=== PATIENT | female | born 1995 | race Caucasian/White ===

== ENCOUNTER 2025-01-02 10:22 | Outpatient (REF) | payer OTHER, SELFPAY ==
--- OUTSIDE RECORDS SUMMARY | 2025-01-02 11:38 | XMS_ITS | Clinical Summary ---
Author Organization Patient Business Ser [facility] Address [address] [place] [address] Care Team Providers Care Scientific Writer Name Role Phone Constantino Sanders MD Primary Care Provider [phone] Allergies Active Allergy Reactions Criticality Noted Date Comments Bupropion Hcl 10/05/2024 Medications omeprazole (PriLOSEC) [address] capsule Take 1 capsule (20 mg total) by mouth 1 (one) time each day. Active Linzess 72 mcg capsule Take 1 capsule (72 mcg total) by mouth 1 (one) time each day. 4 Active Humira,CF, Pen 40 mg/0.4 mL pen 4 Active DULoxetine (CYMBALTA) [address] capsuleIndicatio ns:Depression, unspecified depression type Take 2 capsules (60 mg total) by mouth 1 (one) time each day. Do not crush or chew. 60 capsule 2 5 Active clotrimazole (LOTRIMIN) 1 % cream Apply topically 2 (two) times a day. Active polyethylene glycol (MIRALAX) 17 gram packet Take 17 g by mouth 1 (one) time each day. Active coal tar-salicylic acid 2 % shampoo Apply topically. Apply 1 mL/1.7m2 topically 3 times daily. - Apply externally Active Active Problems Problem Noted Date Diagnosed Date NUD (nonulcer dyspepsia) 11/08/2024 Irritable bowel syndrome with constipation 11/08 Intermittent asthma 10/05/2024 Idiopathic scoliosis and kyphoscoliosis 10/05/20 PCOS (polycystic ovarian syndrome) 10/05/2024 Panic attack 10/05/2024 Chest pain 10/05/2024 Overview (10/05/2024): Chest pain/palpitations Depression 10/05/2024 Seropositive rheumatoid arthritis 10/05/2024 COVID-19 10/05/2024 Encounters Date Type Department Care Team Description 11/28/2024 3:30 PM EST Office Visit Internal Medicine - [place] 175 [facility] [address] [place] [phone] Constantino Sanders MD Depression, unspecified depression type (Primary Dx) 11/08/2024 10:20 AM EST Office Visit Gastroenterology - 299 [facility] 299 [facility] [address] [place] [phone] Alona Benjamin PA Irritable bowel syndrome with constipation (Primary Dx); NUD (nonulcer dyspepsia) 10/17/2024 Telephone Internal Medicine - [place] 175 [facility] 200 [place] [phone] Constantino Sanders MD Appointment (Last appt note) from Last 3 Months Immunizations Name Administration Dates Next Due DTP 06/05/1998, 5,1994,07/21 HPV, Quadrivalent 06/06/2008,06/29/2007,01/06/20 07 Hepatitis B (Jwbnddd-B-Nypoz , Recombivax HB-Adult) 19yo and older 05/27/1995,1994,1994 HiB 09/07/1995, 5,1994,07/21 Influenza, Unspecified 09/10/2021,2019,10/05/2019,09/16,10/15/2014,08/15/2013,08/04/2011 ,11/11/2010 MMR, measles mumps and rubel la Live (Priorix; M-M-R II) 12mo and older 06/05/1998,09/07/1995 Meningococcal Conjugate (Men veo) MenACWY 11yo to less than 19 yo 03/10/2013,04/05/2007 Polio, Unspecified 06/05/1998, 5,1994,07/21 Tdap Tetanus diptheria acell ular pertussis (Boostrix; Adacel) 7yo and older 03/18/2015,01/06/2007 Varicella live (Varivax) 12m o and older 04/22/2015,06/06/2008,08/05/1999 Surgical History Surgery Date Site/Laterality Comments OTHER SURGICAL HISTORY PROCEDURE: DENIES PREVIOUS SURGERY Medical History Medical History Date Comments Depression with anxiety DX:Depression; C OMMENT: 12/05 - trialed on Prozac Chest pain 09/25/2013 DX:Chest pain; C OMMENT: 09/2013 hx of syncope x 2(while hair being restrained while standing up 2005,after sedation for tooth extract) Event recorder NSR/diag chest pain musculoskeletal in origin with anxiety component Intermittent asthma 03/02/2006 DX:Intermitt ent asthma; COMMENT: never hospitalized, worse in summer, triggers: viral illness, rarely exercise, seasonal Panic attack 07/19/2013 DX:Panic attack; COMMENT: Seen [facility] 4-13 panic attack anxiety (c/o sob chest pressure) work up unremarkable, follows with behavioral health PCOS (polycystic ovarian syndrome) 10/05/2012 DX:PCOS (polycystic ovarian syndrome) Scoliosis (and kyphoscoliosi s), idiopathic 01/06/2007 DX:Scoliosis (and kyphoscoli osis), idiopathic; COMMENT: 09/17/09 Dr. Peyton Grijalva pt doing well with no progression of scoliosis. Since at end of growth no further progression expected. Seropositive rheumatoid arth ritis ([facility]/HCC) 10/28/2017 DX:Seropositive rheumatoid a rthritis ([facility]); COMMENT: Follows with rheumatology Covid-19 12/26/2021 DX:COVID-19; COM MENT: 12/02/2021 Family History Medical History Relation Name Comments Asthma Brother 1 Arthritis Father Asthma Father arthropathy Other: Other Father pat ggm hx of p acemaker in later yrs Other: Other Maternal Grandmother rheumat ic heart disease Asthma Mother needs antibioti cs before surgery Diabetes Other 1 Other cancer Other 2 Other: heart Other 3 Other: anxiety Other 4 ? maternal si de Arthritis Paternal Grandmother interst itial lung disease Asthma Sister 1 Relation Name Status Comments Brother 1 Brother 2 Alive Father Alive huber Maternal Grandmother Mother Alive primitivo Other 1 Other 2 Other 3 Other 4 Paternal Grandmother Sister 1 Sister 2 Alive Social History Tobacco Use Types Packs/Day Years Used Date Smoking Tobacco: Never Smokeless Tobacco: Never Alcohol Use Standard Drinks/Week Comments No 0 (1 standard drink = 0.6 oz pur e alcohol) Comments Unknown Sex and Gender Information Value Date Recorded Sex Assigned at Not on file Legal Sex Female 11:53 AM EDT Gender Identity Not on file Sexual Orientation Not on file Obstetrics History Last Filed Vital Signs Vital Sign Reading Time Taken Comments Blood Pressure 122/80 11/28/2024 3:36 PM EST Pulse 80 11/28/2024 3:36 PM EST Temperature 36.6 ??C (97.8 ??F) 11/28/2024 3:36 PM ES T Respiratory Rate - - Oxygen Saturation 98% 11/28/2024 3:36 PM EST Inhaled Oxygen Concentration - - Weight 86.9 kg (191 lb 9.6 oz) 11/28/2024 3:36 P M EST Height 172.7 cm (5' 8 ) 11/08/2024 10:14 AM EST Body Mass Index 29.13 11/08/2024 10:14 AM EST Plan of Treatment Health Maintenance Due Date Last Done Comments Pneumococcal Vaccine: Pediatrics (0 to 5 Years) and At-Risk Patients (6 to 64 Years) (1 of 2 - PCV) 2013 Cervical Cancer Screening: Pap Smear 06/26/2018 06/26/2015, 06/26/2015 Depression Screening 07/14/2021 HIV Screening 07/14/2021 Social Influencers of Health Screening 07/14/2021 COVID-19 Vaccine (3 - Moderna risk series) 01/21/2022 12/24/2021, 11/26/2021 Influenza Vaccine (#1) 2024 , 10/08/2020, 10/05/2019, Additional history exists DTaP,Tdap,and Td Vaccines (8 - Td or Tdap) 03/18/2025 03/18/2015, 01/06/2007, 06/05/1998, Additional history exists Hepatitis B Vaccines Completed 05/27/1995, 05/24/1995, 1994, Additional history exists HIB Vaccines Completed 09/07/1995, 08/22, 1994, Additional history exists IPV Vaccines Completed 06/05/1998, 08/22, 1994, Additional history exists MMR Vaccines Completed 06/05/1998, 09/07/1995 HPV Vaccines Completed 06/06/2008, 06/23, 06/29/2007, Additional history exists Meningococcal ACWY Vaccine Completed 03/10, 04/05/2007, 01/06/2007 Varicella Vaccines Completed 04/22/2015, 0 06/06/2008, 08/05/1999 Hepatitis C Screening Completed 10/05/2019 Hepatitis A Vaccines Aged Out No long er eligible based on patient's age to complete this topic Meningococcal B Vacine Aged Out No lo nger eligible based on patient's age to complete this topic RSV Immunization Patients Under 20 months Aged Out No longer eligible based on patient's age to complete this topic Procedures Procedure Name Priority Date/Time Associated Diagnosis Comments HEPATITIS C SCREENING Routine 10/05/2019 PAP SMEAR Routine 06/26/2015 from Last 3 Months or Most Recently Relevant to Health Maintenance Results * Hepatitis C Screening (10/05/2019) Hepatitis C Screening abstracted Historical Provider HEALTH MAINTENANCE Final Result * Pap Smear (06/26/2015) Pap smear negative, abstracted us Historical Provider HEALTH MAINTENANCE Final Result from Last 3 Months or Most Recently Relevant to Health Maintenance Insurance [facility] Care Teams Scientific Writer Relationship Specialty Start Date End Date Constantino Sanders MD PCP - General Internal Medicine 10/05/24
[2025-01-04 05:29] LABS: Immunoglobulin E 111 kU/L (<OR=114)
== END 2025-01-02 10:23 | disposition home or self-care (01) ==
LOC: HO.10HDL 10:22
PROVIDERS: Visit Provider Otolaryngology
DX: J30.89 Other allergic rhinitis (principal)
CPT/HCPCS: 36415; 82785; 86003

== ENCOUNTER 2025-07-10 16:35 | Outpatient (AMB) | payer OTHER, SELFPAY ==
--- OUTSIDE RECORDS SUMMARY | 2025-07-10 17:45 | XMS_ITS ---
Author Name [facility] Organization Unknown Care Team Organization Name Specialty Phone Email Start Date End Da te [facility] Mary Anne Bergman Primary Care 09/21/2023 024 [facility] KATY LAYTON Primary Care 09/29/2022 07/10/20 24
== END 2025-07-10 16:45 | disposition home or self-care (01) ==
LOC: HO.HMGAL 16:35
PROVIDERS: PCP Internal Medicine Endocrinology, Diabetes & Metabolism; Visit Provider Registered Nurse Emergency
DX: J30.89 Other allergic rhinitis (principal)
CPT/HCPCS: 95117; 95165

== ENCOUNTER 2025-07-18 11:49 | Outpatient (AMB) | payer OTHER, SELFPAY ==
--- OUTSIDE RECORDS SUMMARY | 2025-07-18 12:40 | XMS_ITS | Clinical Summary ---
Demographics Address [address] [place] [address] Home Phone Mobile Phone Email Address Preferred Language en Marital Status Adventism Affiliation Unknown Race Other Race Ethnic Group or Author Organization Patient Business Ser [facility] Address [address] [place] [address] Support Name Relationship Address Phone Ale Uribe Significant other [address] [place] [address] Care Team Providers Care Social Services Director Name Role Phone Constantino Sanders MD Primary Care Provider [phone] Allergies Active Allergy Reactions Criticality Noted Date Comments Bupropion Hcl 10/05/2024 Medications omeprazole (PriLOSEC) [address] capsule Take 1 capsule (20 mg total) by mouth 1 (one) time each day. Active Linzess 72 mcg capsule Take 1 capsule (72 mcg total) by mouth 1 (one) time each day. 4 Active Humira,CF, Pen 40 mg/0.4 mL pen 4 Active nystatin (MYCOSTATIN) 500,000 unit tablet Take 1 tablet (500,000 Units total) by mouth 2 (two) times a day. Active clotrimazole (LOTRIMIN) 1 % cream Apply topically 2 (two) times a day. Active polyethylene glycol (MIRALAX) 17 gram packet Take 17 g by mouth 1 (one) time each day. Active coal tar-salicylic acid 2 % shampoo Apply topically. Apply 1 mL/1.7m2 topically 3 times daily. - Apply externally Active DULoxetine (CYMBALTA) [address] capsuleIndicati ons:Depression, unspecified depression type Take 2 capsules (60 mg total) by mouth 1 (one) time each day. Do not crush or chew. 60 capsule 3 5 Active doxycycline (VIBRAMYCIN) 100 mg capsule Take with at least 8 ounces (large glass) of water, do not lie down for 30 minutes after. Administer 2 hours before or after multivitamins, antacids, or other products containing polyvalent cations (i.e., calcium, iron, magnesium, selenium, zinc). 1 capsule twice a day for 2 weeks and then 1 capsule daily. 60 each 1 5 Active fluconazole (DIFLUCAN) 100 mg tablet Take 1 tablet (100 mg total) by mouth 1 (one) time each day. 025 Discontinu ed(Reorder ) rifAXIMin (XIFAXAN) 200 mg tabletIndicatio ns:Small intestinal bacterial overgrowth (SIBO) Take 1 tablet (200 mg total) by mouth 3 (three) times a day for 14 days. 42 tablet 5 025 fluconazole (DIFLUCAN) 100 mg tablet Take 1 tablet (100 mg total) by mouth 1 (one) time each day for 10 days. 10 each 5 025 Active Problems Problem Noted Date Diagnosed Date NUD (nonulcer dyspepsia) 11/08/2024 Assessment & Plan (04/25/2025 3:48 PM EDT): Asymptomatic. No longer taking omeprazole. Irritable bowel syndrome with constipation 11/08 Assessment & Plan (04/25/2025 3:48 PM EDT): Much better. No longer taking Linzess or any constipation regimen. Patient feels her bowel movements improved after the Teresa regimen prescribed by an ENT. Intermittent asthma 10/05/2024 Idiopathic scoliosis and kyphoscoliosis 10/05/20 24 PCOS (polycystic ovarian syndrome) 10/05/2024 Panic attack 10/05/2024 Chest pain 10/05/2024 Overview (10/05/2024): Chest pain/palpitations Depression 10/05/2024 Seropositive rheumatoid arth ritis (CMS/HCC V24, CMS/HCC V28) 10/05/2024 COVID-19 10/05/2024 Encounters Date Type Department Care Team Description 07/05/2025 2:30 PM EDT Office Visit Internal Medicine - [place] [address] [place] [phone] Constantino Sanders MD Nodulocystic acne (Primary Dx); Folliculitis 06/27/2025 Telephone Gastroenterology - [address] [place] [address] [facility] [address] [place] [address] Alona Benjamin PA 05/02/2025 Telephone Infectious Disease - [place] 175 [facility] 200 [place] [address] Ashley Tang [place] 04/25/2025 10:30 AM EDT Office Visit Gastroenterology - [address] [place] [address] [facility] [address] [place] [phone] Alona Benjamin PA Irritable bowel syndrome with constipation (Primary Dx); Bloating; NUD (nonulcer dyspepsia) from Last 3 Months Immunizations Name Administration Dates Next Due DTP 06/05/1998, 5,1994,07/21 HPV, Quadrivalent 06/06/2008,06/29/2007,01/06/20 07 Hepatitis B (Ufxbbzq-W-Ehnpj , Recombivax HB-Adult) 19yo and older 05/27/1995,1994,1994 [...] Panic attack 07/19/2013 DX:Panic attack; COMMENT: Seen [facility] 4-13 panic attack anxiety (c/o sob chest pressure) work up unremarkable, follows with behavioral health PCOS (polycystic ovarian syndrome) 10/05/2012 DX:PCOS (polycystic ovarian syndrome) Scoliosis (and kyphoscoliosi s), idiopathic 01/06/2007 DX:Scoliosis (and kyphoscoli osis), idiopathic; COMMENT: 09/17/09 Dr. Peyton Grijalva pt doing well with no progression of scoliosis. Since at end of growth no further progression expected. Seropositive rheumatoid arth ritis (CMS/HCC V24, CMS/HCC V28) 10/28/2017 DX:Seropositive rheumatoid arthritis (HCC); COMMENT: Follows with rheumatology Covid-19 12/26/2021 DX:COVID-19; [...] Information Value Date Recorded Sex Assigned at Female 03/02/2025 2:23 PM EDT Legal Sex Female 11:53 AM EDT Gender Identity Female 03/02/2025 2:23 PM EDT Sexual Orientation Lesbian or Redd 03/28/2025 3: 16 PM EDT Obstetrics History Last Filed Vital Signs Vital Sign Reading Time Taken Comments Blood Pressure 100/70 07/05/2025 2:42 PM EDT Pulse 69 07/05/2025 2:42 PM EDT Temperature 36.4 C (97.6 F) 07/05/2025 2:42 PM EDT Respiratory Rate - - Oxygen Saturation 98% 07/05/2025 2:42 PM EDT Inhaled Oxygen Concentration - - Weight 84.9 kg (187 lb 3.2 oz) 07/05/2025 2:42 P M EDT Height 172.7 cm (5' 8 ) 07/05/2025 2:42 PM EDT Body Mass Index 28.46 07/05/2025 2:42 PM EDT Plan of Treatment Upcoming Encounters Date Type Department Care Team (Late st Contact Info) Description 09/04/2025 10:00 AM EDT Office Visit Internal Medicine - [address] [place] [address] Christina Terrazas NP [address] [place] [phone] Health Maintenance Due Date Last Done Comments Pneumococcal Vaccine: Pediatrics (0 to 5 Years) and At-Risk Patients (6 to 49 Years) (1 of 2 - PCV) 2013 Cervical Cancer Screening: Pap Smear 06/26/2018 06/26/2015, 06/26/2015 HIV Screening 07/14/2021 Social Influencers of Health Screening 07/14/2021 COVID-19 Vaccine (3 - Moderna risk series) 01/21/2022 12/24/2021, 11/26/2021 Depression Screening 11/22/2024 DTaP,Tdap,and Td Vaccines (8 - Td or Tdap) 03/18/2025 03/18/2015, 01/06/2007, 06/05/1998, Additional history exists Influenza Vaccine (#1) 2025 , 10/08/2020, 10/05/2019, Additional history exists Cholesterol Screening (Lipid Panel) 02/26/2030 02/26/2025, 10/28/2017 Hepatitis B Vaccines Completed 05/27/1995, 05/24/1995, 1994, [...] age to complete this topic Meningococcal B Vaccine Aged Out No l onger eligible based on patient's age to complete this topic RSV Immunization Patients Under 20 months Aged Out No longer eligible based on patient's age to complete this topic Procedures Procedure Name Priority Date/Time Associated Diagnosis Comments EXTERNAL CLINICAL LAB 06/21/2025 LIPID PANEL WITH REFLEX TO DIRECT LDL Routine 02/26/2025 12:56 PM EDT Right upper quadrant abdominal pain HEPATITIS C SCREENING Routine 10/05/2019 PAP SMEAR Routine 06/26/2015 from Last 3 Months or Most Recently Relevant to Health Maintenance Results * External clinical lab (06/21/2025) us Provider [facility] LAB BLOOD ORDERABLES Fin al Result * (ABNORMAL) Lipid panel with reflex to direct LDL (02/26/2025 12:56 PM EDT) Cholesterol 186 0 - 200 mg/dL LAB CHEMISTRY METHOD 02/26/2025 5:03 PM EDT [facility] Triglycerides 116 0 - 150 mg/dL LAB CHEMISTRY METHOD 02/26/2025 5:03 PM EDT [facility] HDL 50 >=40 mg/dL LAB CHEMISTRY METHOD 02/26/2025 5:03 PM EDT [facility] LDL Calculated 113(H) 0 - 100 mg/dL LAB CHEMISTRY METHOD 02/26/2025 5:03 PM EDT [facility] VLDL Cholesterol Maverick 23.2 mg/dL LAB CHEMISTRY METHOD 02/26/2025 5:03 PM EDT [facility] Non HDL Chol. (LDL+VLDL) 136 <145 mg/dL LAB CHEMISTRY METHOD 02/26/2025 5:03 PM EDT [facility] Chol/HDL Ratio 3.7 0.0 - 4.4 LAB CHEMISTRY METHOD 02/26/2025 5:03 PM EDT [facility] Blood Venous blood specimen / Unknown Venipuncture / Unknown 02/26/2025 12:56 PM EDT 02/26/2025 12:56 PM EDT us Constantino Sanders MD LAB BLOOD ORDERABLES Final Resul t [facility] [address] [place] [address], * Hepatitis C Screening (10/05/2019) Hepatitis C Screening abstracted Historical Provider HEALTH MAINTENANCE Final Result * Pap Smear (06/26/2015) Pap smear negative, abstracted us Zoe Ordoñez MD HEALTH MAINTENANCE Final Result from Last 3 Months or Most Recently Relevant to Health Maintenance Insurance [facility] [address] [place] [address] Care Teams Social Services Director Relationship Specialty Start Date End Date Constantino Sanders MD 175 [facility] [address] [place] [address] PCP - General Internal Medicine 10/05/24
== END 2025-07-18 12:45 | disposition home or self-care (01) ==
LOC: HO.HMGAL 11:49
PROVIDERS: PCP Internal Medicine Endocrinology, Diabetes & Metabolism; Visit Provider Registered Nurse Emergency
DX: J30.89 Other allergic rhinitis (principal)
CPT/HCPCS: 95117; 95165

== ENCOUNTER 2025-07-25 14:18 | Outpatient (AMB) | payer OTHER, SELFPAY ==
--- OUTSIDE RECORDS SUMMARY | 2025-07-25 16:37 | XMS_ITS | Clinical Summary ---
Demographics Address [address] [place] [address] Home Phone Mobile Phone Email Address Preferred Language en Marital Status Buddhism Affiliation Unknown Race Other Race Ethnic Group or Author Organization Patient Business Ser [facility] Address [address] [place] [address] Support Name Relationship Address Phone Ale Uribe Significant other [address] [place] [address] Care Team Providers Care Religious Ritual Slaughterer Name Role Phone Constantino Sanders MD Primary Care Provider [phone] Allergies Active Allergy Reactions Criticality Noted Date [...] PM EDT Office Visit Internal Medicine - [place] [address] [place] [phone] Constantino Sanders MD Nodulocystic acne (Primary Dx); Folliculitis 06/27/2025 Telephone Gastroenterology - [address] [place] [address] [facility] [address] [place] [address] Alona Benjamin PA 05/02/2025 Telephone Infectious Disease - [place] 175 [facility] [address] [place] [address] Ashley Tang [place] 04/25/2025 10:30 AM EDT Office Visit Gastroenterology - [address] [place] [address] [facility] [address] [place] [phone] Alona Benjamin PA Irritable bowel syndrome with constipation (Primary Dx); Bloating; NUD (nonulcer dyspepsia) from Last 3 Months Immunizations Name Administration Dates Next Due DTP 06/05/1998, 5,1994,07/21 HPV, Quadrivalent 06/06/2008,06/29/2007,01/06/20 07 Hepatitis B (Sptmqyh-A-Etmym , Recombivax HB-Adult) 19yo and older 05/27/1995,1994,1994 [...] Panic attack 07/19/2013 DX:Panic attack; COMMENT: Seen [facility] 4-13 panic attack anxiety (c/o sob [...] AM EDT Office Visit Internal Medicine - [address] [place] [address] Christina Terrazas NP [address] [place] [phone] Health Maintenance Due Date Last Done Comments [...] LAB CHEMISTRY METHOD 02/26/2025 5:03 PM EDT [facility] Triglycerides 116 0 - 150 mg/dL LAB CHEMISTRY METHOD 02/26/2025 5:03 PM EDT [facility] HDL 50 >=40 mg/dL LAB CHEMISTRY METHOD 02/26/2025 5:03 PM EDT [facility] LDL Calculated 113(H) 0 - 100 mg/dL LAB CHEMISTRY METHOD 02/26/2025 5:03 PM EDT [facility] VLDL Cholesterol Maverick 23.2 mg/dL LAB CHEMISTRY METHOD 02/26/2025 5:03 PM EDT [facility] Non HDL Chol. (LDL+VLDL) 136 <145 mg/dL LAB CHEMISTRY METHOD 02/26/2025 5:03 PM EDT [facility] Chol/HDL Ratio 3.7 0.0 - 4.4 LAB CHEMISTRY METHOD 02/26/2025 5:03 PM EDT [facility] Blood Venous blood specimen / Unknown Venipuncture / Unknown 02/26/2025 12:56 PM EDT 02/26/2025 12:56 PM EDT us Constantino Sanders MD LAB BLOOD ORDERABLES Final Resul t [facility] [address] [place] [address], * Hepatitis C Screening (10/05/2019) Hepatitis C Screening abstracted Historical Provider HEALTH MAINTENANCE Final Result * Pap Smear (06/26/2015) Pap smear negative, abstracted us Zoe Ordoñez MD HEALTH MAINTENANCE Final Result from Last 3 Months or Most Recently Relevant to Health Maintenance Insurance [facility] [address] [place] [address] Care Teams Religious Ritual Slaughterer Relationship Specialty Start Date End Date Constantino Sanders MD 175 [facility] 200 [place] [address] PCP - General Internal Medicine 10/05/24
== END 2025-07-25 14:19 | disposition home or self-care (01) ==
LOC: HO.HMGAL 14:18
PROVIDERS: PCP Internal Medicine Endocrinology, Diabetes & Metabolism; Visit Provider Registered Nurse Emergency
DX: J30.89 Other allergic rhinitis (principal)
CPT/HCPCS: 95117; 95165

== ENCOUNTER 2025-08-01 14:18 | Outpatient (AMB) | payer OTHER, SELFPAY ==
--- OUTSIDE RECORDS SUMMARY | 2025-08-01 17:36 | XMS_ITS | Encounter Summary ---
Demographics Address [address] [place] [address] Home Phone Mobile Phone Email Address Preferred Language en Marital Status Methodist Affiliation Unknown Race Other Race Ethnic Group or Author Organization [facility] Address [address] [place] [address] Support Name Relationship Address Phone Ale Uribe Significant other [address] [place] [address] Care Team Providers Care Balance Wheel Screw Hole Tapper Name Role Phone Constantino Sanders MD Primary Care Provider [phone] Encounter Details Date Type Department Care Team (Late st Contact Info) Description 06/27/2025 Telephone Gastroenterology - [address] [facility] [address] [place] [address] Alona Benjamin PA [address] [place] [phone] Social History Tobacco Use Types Packs/Day Years [...] or Redd 03/28/2025 3: 16 PM EDT documented as of this encounter Progress Notes * Gisele Canela - 08/01/2025 10:45 AM EDT Pt is calling stating her insurance has not received anything. She is calling to get an update. * Lili Beal - 07/19/2025 1:55 PM EDT Pt spoke to [facility] and they stated they did not receive no paperwork and it would have to be resent. Pt would like a call when PA is done * Savana Guillermo MA - 07/05/2025 11:11 AM EDT Attempted to run a PA under covermymeds for Xifaxan. Received notification today that this PA must be done directly through [facility]. Reprocessed through [facility] via paper form faxed over. * Lili Beal - 07/05/2025 9:54 AM EDT Pt is calling stating a PA is required and needs to be sent to her insurance for the quantity change of xifaxan [phone] * Nhi Underwood - 07/04/2025 2:49 PM EDT Patient calling because the medication was not covered by insurance. Please advise. * Sara Carvalho [place] - 07/04/2025 1:37 PM EDT Informed pt of results. She just finished an antibiotic from the ER and will see her PCP tomorrow for continued facial swelling. She can hold on on the xifaxan until she is done with all antibiotics per Sunitha Hinkle. Jacki * Lili Beal - 07/04/2025 11:38 AM EDT Pt is calling for her sibo results * Judie Hendrix - 06/27/2025 9:03 AM EDT PT CALLED TO SEE IF THE RESULTS OF HER SIBO TEST HAVE BEEN READ? SHE STATES THAT SHE HAS RECEIVED SOME INFORMATION ON HER END BUT DOESN'T REALLY UNDERSTAND WHAT SHE IS LOOKING AT. documented in this encounter Plan of Treatment Upcoming Encounters Date Type Department Care Team (Late st Contact Info) Description 09/04/2025 10:00 AM EDT Office Visit Internal Medicine - [place] [address] [phone] Christina Terrazas NP 175 [facility] 200 [place] [address] documented as of this encounter Visit Diagnoses Not on filedocumented in this encounter Care Teams Balance Wheel Screw Hole Tapper Relationship Specialty Start Date End Date Constantino Sanders MD 175 [facility] 200 [place] [address] PCP - General Internal Medicine 10/05/24 documented as of this encounter
--- OUTSIDE RECORDS SUMMARY | 2025-08-01 17:36 | XMS_ITS | Clinical Summary ---
Demographics Address [address] [place] [address] Home Phone Mobile Phone Email Address Preferred Language en Marital Status Yarsani Affiliation Unknown Race Other Race Ethnic Group or Author Organization Patient Business Ser [facility] Address [address] [place] [address] Support Name Relationship Address Phone Ale Manley Significant other [address] [place] [address] Care Team Providers Care Director Operating Name Role Phone Constantino Sanders MD Primary Care Provider [phone] Allergies Active Allergy Reactions Criticality Noted Date [...] PM EDT Office Visit Internal Medicine - [place] [address] [facility] [address] [place] [address] Constantino Sanders MD Nodulocystic acne (Primary Dx); Folliculitis 06/27/2025 Telephone Gastroenterology - [address] [facility] [address] [facility] [address] [place] [phone] Alona Benjamin PA 05/02/2025 Telephone Infectious Disease - [place] [address] [facility] [address] [place] [address] Ashley Tang MA from Last 3 Months Immunizations Name Administration Dates Next Due DTP 06/05/1998, 5,1994,07/21 HPV, Quadrivalent 06/06/2008,06/29/2007,01/06/20 07 Hepatitis B (Wwtfxhu-G-Jfwvj , Recombivax HB-Adult) 19yo and older 05/27/1995,1994,1994 [...] Panic attack 07/19/2013 DX:Panic attack; COMMENT: Seen [facility] 03-04 panic attack anxiety (c/o sob chest pressure) [...] AM EDT Office Visit Internal Medicine - [place] [address] [facility] [address] [place] [phone] Christina Terrazas NP 175 [facility] [address] [place] [address] Health Maintenance Due Date Last Done Comments [...] LAB CHEMISTRY METHOD 02/26/2025 5:03 PM EDT [facility] Triglycerides 116 0 - 150 mg/dL LAB CHEMISTRY METHOD 02/26/2025 5:03 PM EDT [facility] HDL 50 >=40 mg/dL LAB CHEMISTRY METHOD 02/26/2025 5:03 PM EDT [facility] LDL Calculated 113(H) 0 - 100 mg/dL LAB CHEMISTRY METHOD 02/26/2025 5:03 PM EDT [facility] VLDL Cholesterol Maverick 23.2 mg/dL LAB CHEMISTRY METHOD 02/26/2025 5:03 PM EDT [facility] Non HDL Chol. (LDL+VLDL) 136 <145 mg/dL LAB CHEMISTRY METHOD [facility] Chol/HDL Ratio 3.7 0.0 - 4.4 LAB CHEMISTRY METHOD 02/26/2025 5:03 PM [facility] Blood Venous blood specimen / Unknown Venipuncture / Unknown 02/26/2025 12:56 PM EDT 02/26/2025 12:56 PM EDT Constantino Sanders MD LAB BLOOD ORDERABLES Final Resul t [facility] [address] [place] [address], * Hepatitis C Screening (10/05/2019) Hepatitis C Screening abstracted Historical Provider HEALTH MAINTENANCE Final Result * Pap Smear (06/26/2015) Pap smear negative, abstracted Historical Smita PADILLA HEALTH MAINTENANCE Final Result from Last 3 Months or Most Recently Relevant to Health Maintenance Insurance [facility] [address] [place] [address] Care Teams Director Operating Relationship Specialty Start Date End Date Constantino Sanders MD 175 [facility] [address] [place] [address] PCP - General Internal Medicine 10/05/24
== END 2025-08-01 14:20 | disposition home or self-care (01) ==
LOC: HO.HMGAL 14:18
PROVIDERS: PCP Internal Medicine Endocrinology, Diabetes & Metabolism; Visit Provider Registered Nurse Emergency
DX: J30.89 Other allergic rhinitis (principal)
CPT/HCPCS: 95117; 95165

== ENCOUNTER 2025-08-08 15:27 | Outpatient (AMB) | payer OTHER, SELFPAY ==
--- OUTSIDE RECORDS SUMMARY | 2025-08-08 18:55 | XMS_ITS | Clinical Summary ---
Demographics Address [address] [place] [address] Home Phone Mobile Phone Email Address Preferred Language en Marital Status Sikh Affiliation Unknown Race Other Race Ethnic Group or Author Organization Patient Business Ser [facility] Address [address] [place] [address] Support Name Relationship Address Phone Ale Manley Significant other [address] [place] [address] Care Team Providers Care Prestidigitator Name Role Phone Constantino Sanders MD Primary Care Provider [phone] Allergies Active Allergy Reactions Criticality Noted Date [...] externally Active DULoxetine (CYMBALTA) [address] capsuleIndicatio [...] capsule daily. 60 each 1 5 Active rifAXIMin (XIFAXAN) 200 mg tabletIndication s:Small intestinal bacterial overgrowth (SIBO) Take 1 tablet (200 mg total) by mouth 3 (three) times a day for 14 days. 42 tablet 5 07/12/20 25 fluconazole (DIFLUCAN) 100 mg tablet Take 1 tablet (100 mg total) by mouth 1 (one) time each day for 10 days. 10 each 5 07/15/20 25 Active Problems Problem Noted Date Diagnosed Date [...] PM EDT Office Visit Internal Medicine - [address] [place] [phone] Constantino Sanders MD Nodulocystic acne (Primary Dx); Folliculitis 06/27/2025 Telephone Gastroenterology - [address] [place] [address] [facility] [address] [place] [address] Alona Benjamin PA from Last 3 Months Immunizations Name Administration Dates Next Due DTP 06/05/1998, 5,1994,07/21 HPV, Quadrivalent 06/06/2008,06/29/2007,01/06/20 07 Hepatitis B (Hjombhn-T-Okhef , Recombivax HB-Adult) 19yo and older 05/27/1995,1994,1994 [...] Panic attack 07/19/2013 DX:Panic attack; COMMENT: Seen [facility] 4[facility]13 panic attack anxiety (c/o sob chest [...] AM EDT Office Visit Internal Medicine - [place] [address] [facility] [address] [place] [phone] Christina Terrazas, JACKIE [address] [facility] [address] [place] [address] Health Maintenance Due Date Last Done Comments [...] Maintenance Results * External clinical lab (06/21/2025) Provider [facility] LAB BLOOD ORDERABLES Fin al Result * (ABNORMAL) Lipid panel with reflex to direct LDL (02/26/2025 12:56 PM EDT) Cholesterol 186 0 - 200 mg/dL LAB CHEMISTRY METHOD 02/26/2025 5:03 PM EDT [facility] Triglycerides 116 0 - 150 mg/dL LAB CHEMISTRY METHOD 02/26/2025 5:03 PM EDT [facility] HDL 50 >=40 mg/dL LAB CHEMISTRY METHOD 02/26/2025 5:03 PM EDT [facility] LDL Calculated 113(H) 0 - 100 mg/dL LAB CHEMISTRY METHOD 02/26/2025 5:03 PM EDT [facility] VLDL Cholesterol Maverick 23.2 mg/dL LAB CHEMISTRY METHOD 02/26/2025 5:03 PM EDT [facility] Non HDL Chol. (LDL+VLDL) 136 <145 mg/dL LAB CHEMISTRY METHOD 02/26/2025 5:03 PM EDT [facility] Chol/HDL Ratio 3.7 0.0 - 4.4 LAB CHEMISTRY METHOD 02/26/2025 5:03 PM EDT [facility] Blood Venous blood specimen / Unknown Venipuncture / Unknown 02/26/2025 12:56 PM EDT 02/26/2025 12:56 PM EDT Constantino Sanders MD LAB BLOOD ORDERABLES Final Resul t [facility] [address] [place] [address], * Hepatitis C Screening (10/05/2019) Hepatitis C Screening abstracted Historical Provider HEALTH MAINTENANCE Final Result * Pap Smear (06/26/2015) Pap smear negative, abstracted Zoe Provider HEALTH MAINTENANCE Final Result from Last 3 Months or Most Recently Relevant to Health Maintenance Insurance [facility] Care Teams Prestidigitator Relationship Specialty Start Date End Date Constantino Sanders MD [address] [facility] [address] [place] [address] PCP - General Internal Medicine 10/05/24
== END 2025-08-08 15:36 | disposition home or self-care (01) ==
LOC: HO.HMGAL 15:27
PROVIDERS: PCP Internal Medicine Endocrinology, Diabetes & Metabolism; Visit Provider Registered Nurse Emergency
DX: J30.89 Other allergic rhinitis (principal)
CPT/HCPCS: 95117; 95165

== ENCOUNTER 2025-08-29 13:39 | Outpatient (AMB) | payer OTHER, SELFPAY | END 2025-08-29 13:40 | disposition home or self-care (01) | LOC: HO.HMGAL 13:39 | PROVIDERS: PCP Internal Medicine; Visit Provider Registered Nurse Emergency | DX: J30.89 Other allergic rhinitis (principal) | CPT/HCPCS: 95117; 95165 ==

== ENCOUNTER 2025-09-05 13:52 | Outpatient (AMB) | payer OTHER, SELFPAY ==
--- OUTSIDE RECORDS SUMMARY | 2025-09-04 10:00 | XMS_ITS | Encounter Summary ---
Demographics Address [address] [place] [address] Home Phone Mobile Phone Email Address Preferred Language en Marital Status Gnosticism Affiliation Unknown Race Other Race Ethnic Group or Author Organization [facility] Address [address] [place] [address] Support Name Relationship Address Phone Ale Uribe Significant other [address] [place] [address] Care Team Providers Care Director Business Management Name Role Phone Constantino Sanders MD Primary Care Provider [phone] Reason for Visit * Reason Comments Follow-up Encounter Details Date Type Department Care Team ([facility] st Contact Info) Description 09/04/2025 10:00 AM EDT Office Visit Internal Medicine - [place] [address] [place] [id number] Christina Terrazas NP [address] [place] [address] Routine adult health maintenance (Primary Dx); Screening for ischemic heart disease; Screening for diabetes mellitus; Vitamin B12 deficiency; Vitamin D deficiency; Seropositive rheumatoid arthritis ([facility]/HCC V24, [facility]/HCC V28); Nodulocystic acne Social History Tobacco Use Types Packs/Day Years [...] PM EDT documented as of this encounter Last Filed Vital Signs Vital Sign Reading Time Taken Comments Blood Pressure 123/78 09/04/2025 10:11 AM EDT Pulse 83 09/04/2025 10:11 AM EDT Temperature 36.4 C (97.5 F) 09/04/2025 10:11 AM EDT Respiratory Rate - - Oxygen Saturation 98% 09/04/2025 10:11 AM EDT Inhaled Oxygen Concentration - - Weight 85.5 kg (188 lb 9.6 oz) 09/04/2025 10:11 AM EDT Height 172.7 cm (5' 8 ) 09/04/2025 10:11 AM EDT Body Mass Index 28.68 09/04/2025 10:11 AM EDT documented in this encounter Progress Notes * Christina Terrazas NP - 09/04/2025 10:00 AM EDT CHIEF COMPLAINT: Follow-up IDENTIFIER: Ines Uribe is a 30 y.o. old female who presents for evaluation of general medical health. History of Present Illness Orlando is a 23-year-old female presenting for a physical exam. Rheumatoid Arthritis - Under manager relocation care. No longer on Humira. - On Hadlima injection biweekly. IBS with constipation - Experiencing gastrointestinal issues, awaiting rifaximin approval Cystic acne - Seeing a hospital mortician - Using doxycycline Chronic medical illnesses: Asthma, scoliosis, PCOS, depression, rheumatoid arthritis, irritable bowel syndrome with constipation. Patient does try to eat a balanced diet, does exercise regularly Patient does not smoke, patient does not drink alcohol in excess, patient does not use street drugs, patient does not drink caffeinated beverages in excess. Patient is sexually active. Reports 1 partners in the past 12 months. Health Maintenance: Health Maintenance Due Topic Date Due Pneumococcal Vaccine: Pediatrics (0 to 5 Years) and At-Risk Patients (6 to 49 Years) (1 of 2 - PCV)Never done Cervical Cancer Screening: Pap Smear 06/26/2018 HIV Screening Never done Social Influencers of Health Screening Never done Depression Screening Never done DTaP,Tdap,and Td Vaccines (8 - Td or Tdap) 03/18/2025 Influenza Vaccine (1) 07/23/2025 COVID-19 Vaccine (3 - 2024- season) 2025 ROS: See HPI. PAST MEDICAL HISTORY: Patient Active Problem List Diagnosis Date Noted NUD (nonulcer dyspepsia) 11/08/2024 Irritable bowel syndrome with constipation 11/08/2024 Intermittent asthma 10/05/2024 Idiopathic scoliosis and kyphoscoliosis 10/05/2024 PCOS (polycystic ovarian syndrome) 10/05/2024 Panic attack 10/05/2024 Chest pain 10/05/2024 Depression 10/05/2024 Seropositive rheumatoid arthritis (CMS/HCC V24, CMS/HCC V28) 10/05/2024 COVID-19 10/05/2024 Surgical History[1] Most Recent Immunizations Administered Date(s) Administered DTP 06/05/1998 HPV, Quadrivalent 06/06/2008 Hepatitis B (Pgmpcnh-U-Lrzom, Recombivax HB-Adult) 19yo and older 05/27/1995 HiB 09/07/1995 Influenza, Unspecified 09/10/2021 MMR, measles mumps and rubella Live (Priorix; M-M-R II) 12mo and older 06/05/1998 Meningococcal Conjugate (Menveo) MenACWY 11yo to less than 19 yo 03/10/2013 Moderna SARS-CoV-2 COVID-19, mRNA, LNP-S, preservative free 12/24/2021 Polio, Unspecified 06/05/1998 Tdap Tetanus diptheria acellular pertussis (Boostrix; Adacel) 7yo and older 03/18/2015 Varicella live (Varivax) 12mo and older 04/22/2015 HEALTH MAINTENANCE: Health Maintenance Topic Date Due Pneumococcal Vaccine: Pediatrics (0 to 5 Years) and At-Risk Patients (6 to 49 Years) (1 of 2 - PCV)Never done Cervical Cancer Screening: Pap Smear 06/26/2018 HIV Screening Never done Social Influencers of Health Screening Never done Depression Screening Never done DTaP,Tdap,and Td Vaccines (8 - Td or Tdap) 03/18/2025 Influenza Vaccine (1) 07/23/2025 COVID-19 Vaccine (3 - 2024- season) 2025 Cholesterol Screening (Lipid Panel) 02/26/2030 RSV Immunization Adult Patients (1 - 1-dose 75+ series) 2069 HIB Vaccines Completed Hepatitis B Vaccines Completed IPV Vaccines Completed MMR Vaccines Completed Varicella Vaccines Completed Meningococcal ACWY Vaccine Completed HPV Vaccines Completed Hepatitis C Screening Completed Hepatitis A Vaccines Aged Out Meningococcal B Vaccine Aged Out RSV Immunization Patients Under 20 months Aged Out SOCIAL HISTORY: Social History Tobacco Use Smoking status: Never Smokeless tobacco: Never Substance Use Topics Alcohol use: No FAMILY HISTORY: Family History[2] Family Status Relation Name Status Father Alive huber Mother Alive primitivo PGM (Not Specified) MGM (Not Specified) Other (Not Specified) Other (Not Specified) Other (Not Specified) Brother (Not Specified) Sister (Not Specified) Other (Not Specified) Sister Alive Brother Alive No partnership data on file MEDICATIONS DISCONTINUED/REORDERED: Medications Discontinued During This Encounter Medication Reason DULoxetine (CYMBALTA) [address] capsule Patient Discharge Humira,CF, Pen 40 mg/0.4 mL pen Patient Discharge clotrimazole (LOTRIMIN) 1 % cream Patient Discharge coal tar-salicylic acid 2 % shampoo Patient Discharge Linzess 72 mcg capsule Patient Discharge nystatin (MYCOSTATIN) 500,000 unit tablet Patient Discharge omeprazole (PriLOSEC) [address] capsule Patient Discharge polyethylene glycol (MIRALAX) 17 gram packet Patient Discharge ACTIVE MEDICATIONS: Medications Taking[3] ALLERGIES: Allergies[4] PHYSICAL EXAM: Visit Vitals BP 123/78 (BP Location: Right arm, Patient Position: Sitting, BP Cuff Size: Adult) Pulse 83 Temp 36.4 ??C (97.5 ??F) (Temporal) Ht 1.727 m (68 ) Wt 85.5 kg (188 lb 9.6 oz) SpO2 98% BMI 28.68 kg/m?? Smoking Status Never BSA 1.99 m?? Body mass index is 28.68 kg/m??. Physical Exam Constitutional: Appearance: Normal appearance. Cardiovascular: Rate and Rhythm: Normal rate and regular rhythm. Pulses: Normal pulses. Heart sounds: Normal heart sounds. Pulmonary: Effort: Pulmonary effort is normal. Breath sounds: Normal breath sounds. Neurological: General: No focal deficit present. Mental Status: She is alert and oriented to person, place, and time. Mental status is at baseline. Psychiatric: Mood and Affect: Mood normal. Behavior: Behavior normal. Thought Content: Thought content normal. LABS: No visits with results within 6 Month(s) from this visit. Latest known visit with results is: Appointment on 02/26/2025 Component Date Value Ref Range Status Sodium 02/26/2025 140 133 - 145 mmol/L Final Potassium 02/26/2025 4.4 3.5 - 5.5 mmol/L Final Chloride 02/26/2025 107 96 - 110 mmol/L Final CO2 02/26/2025 29 21 - 32 mmol/L Final Anion Gap 02/26/2025 4 3 - 11 Final Glucose 02/26/2025 88 70 - 100 mg/dL Final BUN 02/26/2025 13 5 - 25 mg/dL Final Creatinine 02/26/2025 0.70 0.50 - 1.10 mg/dL Final eGFR 02/26/2025 119 >=60 mL/min/1.73m2 Final BUN/Creatinine Ratio 02/26/2025 18.6 Final Calcium 02/26/2025 9.7 8.5 - 10.5 mg/dL Final AST (SGOT) 02/26/2025 21 10 - 42 unit/L Final ALT (SGPT) 02/26/2025 25 10 - 60 unit/L Final Alkaline Phosphatase 02/26/2025 69 42 - 121 unit/L Final Total Protein 02/26/2025 7.1 6.0 - 8.0 g/dL Final Albumin 02/26/2025 3.7 3.2 - 5.0 g/dL Final Total Bilirubin 02/26/2025 0.4 0.0 - 1.4 mg/dL Final Cholesterol 02/26/2025 186 0 - 200 mg/dL Final Triglycerides 02/26/2025 116 0 - 150 mg/dL Final HDL 02/26/2025 50 >=40 mg/dL Final LDL Calculated 02/26/2025 113 (H) 0 - 100 mg/dL Final VLDL Cholesterol Maverick 02/26/2025 23.2 mg/dL Final Non HDL Chol. (LDL+VLDL) 02/26/2025 136 <145 mg/dL Final Chol/HDL Ratio 02/26/2025 3.7 0.0 - 4.4 Final TSH 02/26/2025 1.84 0.40 - 4.00 mcIU/mL Final Lipase 02/26/2025 36 13 - 75 unit/L Final Specific [place] Urine 02/26/2025 1.023 1.003 - 1.030 Final pH, Urine 02/26/2025 8.0 5.0 - 8.0 pH Final Leukocytes, Urine 02/26/2025 Small (A) Negative Final Nitrite, Urine 02/26/2025 Negative Negative Final Protein, Urine 02/26/2025 Trace <=Trace mg/dL Final Glucose, Urine 02/26/2025 Negative Negative mg/dL Final Ketones, Urine 02/26/2025 Negative Negative mg/dL Final Urobilinogen, Urine 02/26/2025 0.2 0.2 - 1.0 mg/dL Final Bilirubin, Urine 02/26/2025 Negative Negative Final Blood, Urine 02/26/2025 Negative Negative Final RBC, Urine 02/26/2025 4.0 0 - 4 /HPF Final WBC, Urine 02/26/2025 10.8 (H) 0 - 4 /HPF Final Squamous Epithelial, Urine 02/26/2025 >100 (H) 0 - 60 /LPF Final Bacteria, Urine 02/26/2025 Many (A) Negative /HPF Final Hyaline Casts, Urine 02/26/2025 3.0 0 - 3 /LPF Final Extra Tube 02/26/2025 Hold for add-ons. Final WBC 02/26/2025 9.3 4.8 - 10.8 K/mcL Final RBC 02/26/2025 5.10 (H) 3.80 - 4.80 M/mcL Final Hemoglobin 02/26/2025 14.4 11.5 - 16.0 g/dL Final Hematocrit 02/26/2025 43.4 35.0 - 47.0 % Final MCV 02/26/2025 84.4 79.0 - 98.0 FL Final MCH 02/26/2025 28.0 27.0 - 32.0 pcg Final MCHC 02/26/2025 33.2 32.0 - 37.0 g/dL Final RDW 02/26/2025 12.5 11.0 - 15.0 % Final Platelets 02/26/2025 290 130 - 400 K/mcL Final MPV 02/26/2025 9.6 7.0 - 11.0 FL Final NRBC 02/26/2025 0.0 <1.0 % Final NRBC Absolute 02/26/2025 0.00 <0.10 K/mcL Final Neutrophils Relative 02/26/2025 64.4 % Final Lymphocytes Relative 02/26/2025 25.6 % Final Monocytes Relative 02/26/2025 7.7 % Final Eosinophils Relative 02/26/2025 1.3 % Final Basophils Relative 02/26/2025 0.4 % Final Immature Granulocytes Relative 02/26/2025 0.6 % Final Neutrophils Absolute 02/26/2025 5.95 1.50 - 7.00 K/mcL Final Lymphocytes Absolute 02/26/2025 2.37 1.00 - 5.00 K/mcL Final Monocytes Absolute 02/26/2025 0.71 0.20 - 1.00 K/mcL Final Eosinophils Absolute 02/26/2025 0.12 0.00 - 0.50 K/mcL Final Basophils Absolute 02/26/2025 0.04 0.00 - 0.20 K/mcL Final Immature Granulocytes Absolute 02/26/2025 0.06 (H) 0.00 - 0.03 K/mcL Final Culture, Urine 02/26/2025 10,000-49,000 CFU/mL Streptococcus beta-hemolytic Group B (A) Final IMPRESSION: 1. Routine adult health maintenance 2. Screening for ischemic heart disease 3. Screening for diabetes mellitus 4. Vitamin B12 deficiency 5. Vitamin D deficiency 6. Seropositive rheumatoid arthritis ([facility] V24, [facility] V28) 7. Nodulocystic acne PLAN: 1. Routine adult health maintenance Complete blood count Comprehensive metabolic panel Thyroid stimulating hormone with reflex to free t4 and free t3 Magnesium 2. Screening for ischemic heart disease Lipid panel with reflex to direct LDL 3. Screening for diabetes mellitus Hemoglobin A1c 4. Vitamin B12 deficiency Vitamin B12 5. Vitamin D deficiency Vitamin D 25 hydroxy 6. Seropositive rheumatoid arthritis ([facility] V24, [facility] V28) 7. Nodulocystic acne Genetic cancer syndrome screening done: No. Glaucoma screening regularly I offered STD testing to the patient, declined Discussed healthy dietary choices. Discussed increasing dietary fiber through fruits, veggies, whole grains. Advised the patient to exercise 30mins a day most days of the week. Advised patient to see a dentist at least yearly. Advised patient to use sunscreen, hats, clothing while outdoors in direct sunlight. Advised patient to wear a seatbelt while in the car. Advised the patient to check smoke/fire alarms at home regularly. Pelvic exams and PAPs regularly Discussed safe sex practices Self breast exams monthly. I have reviewed the following sections of the chart: Past Medical History Family History Social History Health Maintenance: Annual physical exam completed. Assessment & Plan 1. Routine physical exam - Routine labs ordered. Patient was fasting today. - Patient declined flu vaccine today. 2. Rheumatoid Arthritis On Hadlima (adalimumab-atto) 40 mg injection biweekly. - Under manager relocation care. 3. Cystic acne Using doxycycline. - Under hospital mortician care. Recommend follow-up in 1 year for routine annual physical exam. Advised the patient to call me if any problems. Patient understands the plan. Patient is in agreement with the plan. I have obtained verbal consent from Ines Uribe prior to the recording. I have advised Ines Uribe that she may refuse the recording and require the recording to be turned off at any time during this encounter. Christina Terrazas NP on 09/04/2025 at 2:19 PM EDT [1] Past Surgical History: Procedure Laterality Date OTHER SURGICAL HISTORY PROCEDURE: DENIES PREVIOUS SURGERY [2] Family History Problem Relation Name Age of Onset Asthma Father arthropathy Arthritis Father Other (Other: Other) Father pat ggm hx of pacemaker in later yrs Asthma Mother needs antibiotics before surgery Arthritis Paternal Grandmother interstitial lung disease Other (Other: Other) Maternal Grandmother rheumatic heart disease Diabetes Other Other cancer Other Other (Other: heart) Other Asthma Brother Asthma Sister Other (Other: anxiety) Other ? maternal side [3] Outpatient Medications Marked as Taking for the 09/04/25 encounter (Office Visit) with Christina Terrazas NP Medication Sig Dispense Refill adalimumab-bwwd (HADLIMA,CF, PUSHTOUCH SUBQ) Inject under the skin every 14 (fourteen) days. doxycycline (VIBRAMYCIN) 100 mg capsule Take with at least 8 ounces (large glass) of water, do not lie down for 30 minutes after. Administer 2 hours before or after multivitamins, antacids, or other products containing polyvalent cations (i.e., calcium, iron, magnesium, selenium, zinc). 1 capsule twice a day for 2 weeks and then 1 capsule daily. 60 each 1 rifAXIMin (XIFAXAN) 550 mg tablet Take 1 tablet (550 mg total) by mouth 3 (three) times a day for 14 days. 42 each 0 [4] Allergies Allergen Reactions Wellbutrin [Bupropion Hcl] documented in this encounter Plan of Treatment Upcoming Encounters Date Type Department Care Team (Late st Contact Info) Description 09/05/2026 9:00 AM EDT Office Visit Internal Medicine - [place] [address] [place] [phone] Christina Terrazas NP [address] [place] [address] documented as of this encounter Results * (ABNORMAL) Vitamin D 25 hydroxy (09/04/2025 10:43 AM EDT) [facility] Vit D, 25-Hydroxy 28.9(L) 30.0 - 80.0 ng/mL LAB CHEMISTRY METHOD 09/04/2025 6:06 PM EDT [facility] Blood Venous blood specimen / Unknown Venipuncture / Unknown 09/04/2025 10:43 AM EDT 09/04/2025 10:43 AM EDT us Christina Terrazas [employer] CLEAN[employer] MACHINE FEEDER LAB BLOOD ORDERABLES Final Resul t Performing Organization Address City/[facility]/ZIP Co de Phone Number [facility] [address] [place] [address], * Vitamin B12 (09/04/2025 10:43 AM EDT) [facility] Vitamin B-12 521 250 - 900 pcg/mL LAB CHEMISTRY METHOD 09/04/2025 6:04 PM EDT [facility] Blood Venous blood specimen / Unknown Venipuncture / Unknown 09/04/2025 10:43 AM EDT 09/04/2025 10:43 AM EDT us Christina Terrazas [employer] CLE[employer] MACHINE FEEDER LAB BLOOD ORDERABLES Final Resul t [facility] [address] [place] [address], [place] [phone] * Magnesium (09/04/2025 10:43 AM EDT) Pathologist [facility] Magnesium 2.0 1.9 - 2.6 mg/dL LAB CHEMISTRY METHOD 09/04/2025 5:39 PM EDT [facility] Blood Venous blood specimen / Unknown Venipuncture / Unknown 09/04/2025 10:43 AM EDT 09/04/2025 10:43 AM EDT Christina Terrazas NP LAB BLOOD ORDERABLES Final Resul t Performing Organization Address City/[facility]/ZIP Co de Phone Number [facility] [address] [place] [address], [place] [phone] * Thyroid stimulating hormone with reflex to free t4 and free t3 (09/04/2025 10:43 AM EDT) [facility] TSH 2.00 0.40 - 4.00 mcIU/mL LAB CHEMISTRY METHOD 09/04/2025 6:06 PM EDT [facility] Blood Venous blood specimen / Unknown Venipuncture / Unknown 09/04/2025 10:43 AM EDT 09/04/2025 10:43 AM EDT Christina Terrazas NP LAB BLOOD ORDERABLES Final Resul t [facility] [address] [place] [address], [place] [phone] * Hemoglobin A1c (09/04/2025 10:43 AM EDT) [facility] Hemoglobin A1C 5.4 <6.5 % LAB CHEMISTRY METHOD 09/04/2025 9:57 PM EDT [facility] Mean Bld Glu Estim. 108 mg/dL LAB CHEMISTRY METHOD 09/04/2025 9:57 PM EDT [facility] Blood Venous blood specimen / Unknown Venipuncture / Unknown 09/04/2025 10:43 AM EDT 09/04/2025 10:43 AM EDT Christina Terrazas [employer] CLE[employer] MACHINE FEEDER LAB BLOOD ORDERABLES Final Resul t [facility] [address] [place] [address], [place] [phone] * (ABNORMAL) Comprehensive metabolic panel (09/04/2025 10:43 AM EDT) Sodium 139 133 - 145 mmol/L LAB CHEMISTRY METHOD 09/04/2025 6:04 PM [facility] Potassium 4.4 3.5 - 5.5 mmol/L LAB CHEMISTRY METHOD 09/04/2025 6:04 PM [facility] Chloride 106 96 - 110 mmol/L LAB CHEMISTRY METHOD 09/04/2025 6:04 PM [facility] CO2 28 21 - 32 mmol/L LAB CHEMISTRY METHOD 09/04/2025 6:04 PM [facility] Anion Gap 5 3 - 11 LAB CHEMISTRY METHOD 09/04/2025 6:04 PM [facility] Glucose 111(H) 70 - 100 mg/dL LAB CHEMISTRY METHOD 09/04/2025 6:04 PM [facility] BUN 14 5 - 25 mg/dL LAB CHEMISTRY METHOD 09/04/2025 6:04 PM [facility] Creatinine 0.65 0.50 - 1.10 mg/dL LAB CHEMISTRY METHOD 09/04/2025 6:04 PM [facility] eGFR 121 >=60 mL/min/1. 73m2 LAB CHEMISTRY METHOD 09/04/2025 6:04 PM [facility] Comment:Calculation based on the Chronic Kidney Disease Epidemiology Collaboration (CKD-EPI) equation refit without adjustment for race. BUN/Creatinine Ratio 21.5 LAB CHEMISTRY METHOD 09/04/2025 6:04 PM T [facility] Calcium 9.4 8.5 - 10.5 mg/dL LAB CHEMISTRY METHOD 09/04/2025 6:04 PM [facility] AST (SGOT) 20 10 - 42 unit/L LAB CHEMISTRY METHOD 09/04/2025 6:04 PM [facility] ALT (SGPT) 29 10 - 60 unit/L LAB CHEMISTRY METHOD 09/04/2025 6:04 PM [facility] Alkaline Phosphatase 82 42 - 121 unit/L LAB CHEMISTRY METHOD 09/04/2025 6:04 PM [facility] Total Protein 7.0 6.0 - 8.0 g/dL LAB CHEMISTRY METHOD 09/04/2025 6:04 PM [facility] Albumin 3.8 3.2 - 5.0 g/dL LAB CHEMISTRY METHOD 09/04/2025 6:04 PM [facility] Total Bilirubin 0.3 0.0 - 1.4 mg/dL LAB CHEMISTRY METHOD 09/04/2025 6:04 PM [facility] Blood Venous blood specimen / Unknown Venipuncture / Unknown 09/04/2025 10:43 AM EDT 09/04/2025 10:43 AM EDT us Christina Terrazas [employer] CLE[employer]ACHINE FEEDER LAB BLOOD ORDERABLES Final Resul t [facility] [address] [place] [address], * (ABNORMAL) Complete blood count (09/04/2025 10:43 AM EDT) WBC 6.3 4.8 - 10.8 K/mcL LAB HEMETOLOGY METHOD 09/04/2025 2:14 PM EDT [facility] RBC 5.10(H) 3.80 - 4.80 M/mcL LAB HEMETOLOGY METHOD 09/04/2025 2:14 PM EDT [facility] Hemoglobin 13.7 11.5 - 16.0 g/dL LAB HEMETOLOGY METHOD 09/04/2025 2:[facility] Hematocrit 42.2 35.0 - 47.0 % LAB HEMETOLOGY METHOD 09/04/2025 2:14 PM EDT [facility] MCV 83.6 79.0 - 98.0 FL LAB HEMETOLOGY METHOD 09/04/2025 2:14 PM EDT [facility] MCH 27.1 27.0 - 32.0 pcg LAB HEMETOLOGY METHOD 09/04/2025 2:14 [facility] MCHC 32.5 32.0 - 37.0 g/dL LAB HEMETOLOGY METHOD 09/04/2025 2:14 PM [facility] RDW 12.5 11.0 - 15.0 % LAB HEMETOLOGY METHOD 09/04/2025 2:14 PM [facility] Platelets 313 130 - 400 K/mcL LAB HEMETOLOGY METHOD 09/04/2025 2:14 PM [facility] MPV 9.9 7.0 - 11.0 FL LAB HEMETOLOGY METHOD 09/04/2025 2:14 PM [facility] NRBC 0.0 <1.0 % LAB HEMETOLOGY METHOD 09/04/2025 2:14 PM [facility] NRBC Absolute 0.00 <0.10 K/mcL LAB HEMETOLOGY METHOD 09/04/2025 2:14 PM [facility] Blood Venous blood specimen / Unknown Venipuncture / Unknown 09/04/2025 10:43 AM EDT 09/04/2025 10:43 AM EDT us Christina Terrazas [employer] CLE[employer] MACHINE FEEDER LAB BLOOD ORDERABLES Final Resul t Performing Organization Address City/[facility]/ZIP Co de Phone Number [facility] [address] [place] [address], [place] [phone] * (ABNORMAL) Lipid panel with reflex to direct LDL (09/04/2025 10:43 AM EDT) Cholesterol 195 0 - 200 mg/dL LAB CHEMISTRY METHOD 09/04/2025 6:04 PM EDT [facility] Triglycerides 107 0 - 150 mg/dL LAB CHEMISTRY METHOD 09/04/2025 6:04 PM EDT [facility] HDL 53 >=40 mg/dL LAB CHEMISTRY METHOD 09/04/2025 6:04 PM EDT [facility] LDL Calculated 121(H) 0 - 100 mg/dL LAB CHEMISTRY METHOD 09/04/2025 6:04 PM EDT [facility] Comment:Estimated LDL Calcul ated using equation: Total cholesterol - HDL cholesterol - (Triglycerides/5) VLDL Cholesterol Maverick 21.4 mg/dL LAB CHEMISTRY METHOD 09/04/2025 6:04 PM EDT [facility] Non HDL Chol. (LDL+VLDL) 142 <145 mg/dL LAB CHEMISTRY METHOD 09/04/2025 6:04 PM EDT [facility] Chol/HDL Ratio 3.7 0.0 - 4.4 LAB CHEMISTRY METHOD 09/04/2025 6:04 PM T [facility] Blood Venous blood specimen / Unknown Venipuncture / Unknown 09/04/2025 10:43 AM EDT 09/04/2025 10:43 AM EDT us Christina Terrazas [employer] CLE[employer] MACHINE FEEDER LAB BLOOD ORDERABLES Final Resul t Performing Organization Address City/[facility]/ZIP Co de Phone Number [facility] [address] [place] [address], [place] [phone] documented in this encounter Visit Diagnoses Diagnosis Routine adult health maintenance- Primary Screening for ischemic heart disease Screening for diabetes mellitus Vitamin B12 deficiency Other B-complex deficiencies Vitamin D deficiency Seropositive rheumatoid arthritis ([facility] V24, [facility] V28) Nodulocystic acne documented in this encounter Discontinued Medications Medication Sig Discontinue Reason Start Date End Da te DULoxetine (CYMBALTA) [address] capsuleIndications:Depr ession, unspecified depression type Take 2 capsules (60 mg total) by mouth 1 (one) time each day. Do not crush or chew. Patient Discharge 02/26/2025 09/04/2025 Humira,CF, Pen 40 mg/0.4 mL pen Patient Discharge 10/24/2024 09/04/2025 clotrimazole (LOTRIMIN) 1 % cream Apply topically 2 (two) times a day. Patient Discharge 09/04/2025 coal tar-salicylic acid 2 % shampoo Apply topically. Apply 1 mL/1.7m2 topically 3 times daily. - Apply externally Patient Discharge 09/04/2025 Linzess 72 mcg capsule Take 1 capsule (72 mcg total) by mouth 1 (one) time each day. Patient Discharge 09/07/2024 09/04/2025 nystatin (MYCOSTATIN) 500,000 unit tablet Take 1 tablet (500,000 Units total) by mouth 2 (two) times a day. Patient Discharge 09/04/2025 omeprazole (PriLOSEC) [address] capsule Take 1 capsule (20 mg total) by mouth 1 (one) time each day. Patient Discharge 09/04/2025 polyethylene glycol (MIRALAX) 17 gram packet Take 17 g by mouth 1 (one) time each day. Patient Discharge 09/04/2025 documented as of this encounter Historical Medications * This list may reflect changes made after this encounter. adalimumab-bwwd (HADLIMA,CF, PUSHTOUCH SUBQ) Inject under the skin every 14 (fourteen) days. added in this encounter Care Teams Director Business Management Relationship Specialty Start Date End Date Constantino Sanders MD [address] [place] [address] PCP - General Internal Medicine 10/05/24 documented as of this encounter
--- OUTSIDE RECORDS SUMMARY | 2025-09-05 17:36 | XMS_ITS | Clinical Summary ---
Demographics Address [address] [place] [address] Home Phone Mobile Phone Email Address Preferred Language en Marital Status Buddhism Affiliation Unknown Race Other Race Ethnic Group or Author Organization Patient Business Ser [facility] [place] Address [address] [place] [address] Support Name Relationship Address Phone Ale Manley Significant other [address] [place] [address] Care Team Providers Care Photogrammetric Surveyor Name Role Phone Constantino Sanders MD Primary Care Provider Allergies Active Allergy Reactions Criticality Noted Date Comments Bupropion Hcl 10/05/2024 Medications doxycycline (VIBRAMYCIN) 100 mg capsule Take with at least 8 ounces (large glass) of water, do not lie down for 30 minutes after. Administer 2 hours before or after multivitamins, antacids, or other products containing polyvalent cations (i.e., calcium, iron, magnesium, selenium, zinc). 1 capsule twice a day for 2 weeks and then 1 capsule daily. 60 each 1 5 Active adalimumab-bwwd (HADLIMA,CF, PUSHTOUCH SUBQ) Inject under the skin every 14 (fourteen) days. Active cholecalciferol (VITAMIN D-3) 50 mcg (2,000 unit) tabletIndicatio ns:Vitamin D deficiency Take 1 tablet (2,000 Units total) by mouth 1 (one) time each day. 90 tablet 3 5 026 Active omeprazole (PriLOSEC) [address] capsule Take 1 capsule (20 mg total) by mouth 1 (one) time each day. 025 Discontinu ed(Patient Discharge) Linzess 72 mcg capsule Take 1 capsule (72 mcg total) by mouth 1 (one) time each day. 4 Discontinu ed(Patient Discharge) Humira,CF, Pen 40 mg/0.4 mL pen 4 Discontinu ed(Patient Discharge) nystatin (MYCOSTATIN) 500,000 unit tablet Take 1 tablet (500,000 Units total) by mouth 2 (two) times a day. Discontinu ed(Patient Discharge) clotrimazole (LOTRIMIN) 1 % cream Apply topically 2 (two) times a day. Discontinu ed(Patient Discharge) polyethylene glycol (MIRALAX) 17 gram packet Take 17 g by mouth 1 (one) time each day. Discontinu ed(Patient Discharge) coal tar-salicylic acid 2 % shampoo Apply topically. Apply 1 mL/1.7m2 topically 3 times daily. - Apply externally Discontinu ed(Patient Discharge) DULoxetine (CYMBALTA) [address] capsuleIndicati ons:Depression, unspecified depression type Take 2 capsules (60 mg total) by mouth 1 (one) time each day. Do not crush or chew. 60 capsule 3 5 Discontinu ed(Patient Discharge) rifAXIMin (XIFAXAN) 550 mg tabletIndicatio ns:Irritable bowel syndrome with diarrhea Take 1 tablet (550 mg total) by mouth 3 (three) times a day for 14 days. 42 each 5 Active Problems Problem Noted Date Diagnosed Date [...] pain/palpitations Depression 10/05/2024 Seropositive rheumatoid arth ritis ([facility] V24, [facility] V28) 10/05/2024 COVID-19 10/05/2024 Encounters Date Type Department Care Team Description 09/05/2025 Results Follow-Up Internal Medicine [facility] [address] [facility] [address] [place] [address] Christina Terrazas NP 09/04/2025 10:00 AM EDT Office Visit Internal Medicine [facility] 175 [facility] [address] [place] [address] Christina Terrazas NP Routine adult health maintenance (Primary Dx); Screening for ischemic heart disease; Screening for diabetes mellitus; Vitamin B12 deficiency; Vitamin D deficiency; Seropositive rheumatoid arthritis ([facility] V24, [facility] V28); Nodulocystic acne 09/04/2025 Telephone Internal Medicine [facility] 175 [facility] [address] [place] [address] Constantino Sanders MD 07/05/2025 2:30 PM EDT Office Visit Internal Medicine [facility] [address] [facility] [address] [place] [address] Constantino Sanders MD Nodulocystic acne (Primary Dx); Folliculitis 06/27/2025 Telephone Gastroenterology - [address] [facility] [address] [facility] [address] [place] [address] Alona Benjamin PA from Last 3 Months Immunizations Immunization Administration Dates Next Due DTP 06/05/1998, 5,1994,07/21 HPV, Quadrivalent 06/06/2008,06/29/2007,01/06/20 07 Hepatitis B (Ltjyxvv-X-Bisik , Recombivax HB-Adult) 19yo and older 05/27/1995,1994,1994 [...] Panic attack 07/19/2013 DX:Panic attack; COMMENT: Seen [facility] 4- panic attack anxiety (c/o sob chest pressure) [...] Mass Index 28.68 09/04/2025 10:11 AM EDT Plan of Treatment Upcoming Encounters Date Type Department Care Team (Late st Contact Info) Description 09/05/2026 9:00 AM EDT Office Visit Internal Medicine - [address] [place] [address] Christina Terrazas, JACKIE [address] [facility] [address] [place] [address] Health Maintenance Due Date Last Done Comments Pneumococcal Vaccine: Pediatrics (0 to 5 Years) and At-Risk Patients (6 to 49 Years) (1 of 2 - PCV) 2013 Cervical Cancer Screening: Pap Smear 06/26/2018 06/26/2015, 06/26/2015 HIV Screening 07/14/2021 Social Influencers of Health Screening 07/14/2021 Depression Screening 11/22/2024 DTaP,Tdap,and Td Vaccines (8 - Td or Tdap) 03/18/2025 03/18/2015, 01/06/2007, 06/05/1998, Additional history exists COVID-19 Vaccine ( season) 2025 12/24/2021, 11/26/2021 Influenza Vaccine (#1) 2025 , 10/08/2020, 10/05/2019, Additional history exists Cholesterol Screening (Lipid Panel) 09/04/2030 09/04/2025, 02/26/2025, 10/28/2017 RSV Immunization Adult Patients (1 - 1-dose 75+ series) 2069 Hepatitis B Vaccines Completed 05/27/1995, 05/24/1995, 1994, Additional history exists HIB Vaccines Completed 09/07/1995, 08/22, 1994, Additional history exists IPV Vaccines Completed 06/05/1998, 08/22, 1994, Additional history exists MMR Vaccines Completed 06/05/1998, 09/07/1995 HPV Vaccines Completed 06/06/2008, 0806/2007, 06/29/2007, Additional history exists Meningococcal ACWY Vaccine [...] Procedure Name Priority Date/Time Associated Diagnosis Comments VITAMIN D 25 HYDROXY Routine 09/04/2025 10:43 AM EDT Vitamin D deficiency VITAMIN B12 Routine 09/04/2025 10:43 AM EDT Vitamin B12 deficiency MAGNESIUM Routine 09/04/2025 10:43 AM EDT Routine adult health maintenance THYROID STIMULATING HORMONE WITH REFLEX TO FREE T4 AND FREE T3 Routine 09/04/2025 10:43 AM EDT Routine adult health maintenance HEMOGLOBIN A1C Routine 09/04/2025 10:43 AM EDT Screening for diabetes mellitus COMPREHENSIVE METABOLIC PANEL Routine 09/04/2025 10:43 AM EDT Routine adult health maintenance COMPLETE BLOOD COUNT Routine 09/04/2025 10:43 AM EDT Routine adult health maintenance LIPID PANEL WITH REFLEX TO DIRECT LDL Routine 09/04/2025 10:43 AM EDT Screening for ischemic heart disease EXTERNAL CLINICAL LAB 06/21/2025 HEPATITIS C SCREENING Routine 10/05/2019 PAP SMEAR Routine 06/26/2015 from Last 3 Months or Most Recently Relevant to Health Maintenance Results * Thyroid stimulating hormone with reflex to free t4 and free t3 (09/04/2025 10:43 AM EDT) TSH 2.00 0.40 - 4.00 mcIU/mL LAB CHEMISTRY METHOD 09/04/2025 6:06 PM EDT [facility] ([facility]) [facility] Blood Venous blood specimen / Unknown Venipuncture / Unknown 09/04/2025 10:43 AM EDT 09/04/2025 10:43 AM EDT Tanzeem Alam OFFICE SUPPORT ASSISTANT LAB BLOOD ORDERABLES Final Resul t Performing Organization Address [facility]/ZIP Co de Phone Number [facility] [address] [place] [address], [place] [phone] * (ABNORMAL) Lipid panel with reflex to direct LDL (09/04/2025 10:43 AM EDT) Cholesterol 195 0 - 200 mg/dL LAB CHEMISTRY METHOD 09/04/2025 6:04 PM EDT [facility] Triglycerides 107 0 - 150 mg/dL LAB CHEMISTRY METHOD 09/04/2025 6:04 PM EDT [facility] HDL 53 >=40 mg/dL LAB CHEMISTRY METHOD 09/04/2025 6:04 PM EDT [facility] LDL Calculated 121(H) 0 - 100 mg/dL LAB CHEMISTRY METHOD 09/04/2025 6:04 PM EDT [facility] Comment:Estimated LDL Calcul ated using equation: Total cholesterol - HDL cholesterol - (Triglycerides/5) VLDL Cholesterol Maverick 21.4 mg/dL LAB CHEMISTRY METHOD 09/04/2025 6:04 PM EDT [facility] Non HDL Chol. (LDL+VLDL) 142 <145 mg/dL LAB CHEMISTRY METHOD 09/04/2025 6:04 PM EDT [facility] Chol/HDL Ratio 3.7 0.0 - 4.4 LAB CHEMISTRY METHOD 09/04/2025 6:04 PM EDT [facility] Blood Venous blood specimen / Unknown Venipuncture / Unknown 09/04/2025 10:43 AM EDT 09/04/2025 10:43 AM EDT Darshanfroylanchapin Garciachapin OFFICE SUPPORT ASSISTANT LAB BLOOD ORDERABLES Final Resul t [facility] [address] [place] [address], [place] [phone] * (ABNORMAL) Vitamin D 25 hydroxy (09/04/2025 10:43 AM EDT) Pathologist [facility] Vit D, 25-Hydroxy 28.9(L) 30.0 - 80.0 ng/mL LAB CHEMISTRY METHOD 09/04/2025 6:06 PM EDT [facility] Blood Venous blood specimen / Unknown Venipuncture / Unknown 09/04/2025 10:43 AM EDT 09/04/2025 10:43 AM EDT us Christina Terrazas NP LAB BLOOD ORDERABLES Final Resul t [facility] [address] [place] [address], * (ABNORMAL) Complete blood count (09/04/2025 10:43 AM EDT) [facility] WBC 6.3 4.8 - 10.8 K/mcL LAB HEMETOLOGY METHOD 09/04/2025 2:14 PM EDT [facility] RBC 5.10(H) 3.80 - 4.80 M/mcL LAB HEMETOLOGY METHOD 09/04/2025 2:14 PM EDT [facility] Hemoglobin 13.7 11.5 - 16.0 g/dL LAB HEMETOLOGY METHOD 09/04/2025 2:14 PM EDT [facility] Hematocrit 42.2 35.0 - 47.0 % LAB HEMETOLOGY METHOD 09/04/2025 2:14 PM EDT [facility] MCV 83.6 79.0 - 98.0 FL LAB HEMETOLOGY METHOD 09/04/2025 2:14 PM EDT [facility] MCH 27.1 27.0 - 32.0 pcg LAB HEMETOLOGY METHOD 09/04/2025 2:14 PM EDT [facility] MCHC 32.5 32.0 - 37.0 g/dL LAB HEMETOLOGY METHOD 09/04/2025 2:14 PM EDT [facility] RDW 12.5 11.0 - 15.0 % LAB HEMETOLOGY METHOD 09/04/2025 2:14 PM EDT [facility] Platelets 313 130 - 400 K/mcL LAB HEMETOLOGY METHOD 09/04/2025 2:14 PM EDT [facility] MPV 9.9 7.0 - 11.0 FL LAB HEMETOLOGY METHOD 09/04/2025 2:14 PM EDT [facility] NRBC 0.0 <1.0 % LAB HEMETOLOGY METHOD 09/04/2025 2:14 PM EDT [facility] NRBC Absolute 0.00 <0.10 K/mcL LAB HEMETOLOGY METHOD 09/04/2025 2:14 PM EDT [facility] Blood Venous blood specimen / Unknown Venipuncture / Unknown 09/04/2025 10:43 AM EDT 09/04/2025 10:43 AM EDT us Christina Terrazas OFFICE SUPPORT ASSISTANT LAB BLOOD ORDERABLES Final Resul t Performing Organization Address City/[facility]/ZIP Co de Phone Number [facility] [address] [place] [address], * Magnesium (09/04/2025 10:43 AM EDT) Magnesium 2.0 1.9 - 2.6 mg/dL LAB CHEMISTRY METHOD 09/04/2025 5:39 PM EDT [facility] Blood Venous blood specimen / Unknown Venipuncture / Unknown 09/04/2025 10:43 AM EDT 09/04/2025 10:43 AM EDT us Christina Terrazas OFFICE SUPPORT ASSISTANT LAB BLOOD ORDERABLES Final Resul t [facility] [address] [place] [address], [place] [phone] * Hemoglobin A1c (09/04/2025 10:43 AM EDT) [facility] Hemoglobin A1C 5.4 <6.5 % LAB CHEMISTRY METHOD 09/04/2025 9:57 PM EDT [facility] Mean Bld Glu Estim. 108 mg/dL LAB CHEMISTRY METHOD 09/04/2025 9:57 PM EDT [facility] Blood Venous blood specimen / Unknown Venipuncture / Unknown 09/04/2025 10:43 AM EDT 09/04/2025 10:43 AM EDT Christina Terrazas NP LAB BLOOD ORDERABLES Final Resul t Performing Organization Address [facility]/ZIP Co de Phone Number [facility] [address] [place] [address], * Vitamin B12 (09/04/2025 10:43 AM EDT) [facility] Vitamin B-12 521 250 - 900 pcg/mL LAB CHEMISTRY METHOD 09/04/2025 6:04 PM EDT [facility] Blood Venous blood specimen / Unknown Venipuncture / Unknown 09/04/2025 10:43 AM EDT 09/04/2025 10:43 AM EDT us Christina Terrazas NP LAB BLOOD ORDERABLES Final Resul t [facility] [address] [place] [address], [place] [phone] * (ABNORMAL) Comprehensive metabolic panel (09/04/2025 10:43 AM EDT) [facility] Sodium 139 133 - 145 mmol/L LAB CHEMISTRY METHOD 09/04/2025 6:04 PM EDT [facility] Potassium 4.4 3.5 - 5.5 mmol/L LAB CHEMISTRY METHOD 09/04/2025 6:04 PM [facility] Chloride 106 96 - 110 mmol/L LAB CHEMISTRY METHOD 09/04/2025 6:04 PM [facility] CO2 28 21 - 32 mmol/L LAB CHEMISTRY METHOD 09/04/2025 6:04 PM [facility] Anion Gap 5 3 - 11 LAB CHEMISTRY METHOD 09/04/2025 6:04 PM [facility] Glucose 111(H) 70 - 100 mg/dL LAB CHEMISTRY METHOD 09/04/2025 6:04 PM [facility] BUN 14 5 - 25 mg/dL LAB CHEMISTRY METHOD 09/04/2025 6:04 PM [facility] Creatinine 0.65 0.50 - 1.10 mg/dL LAB CHEMISTRY METHOD 09/04/2025 6:04 PM [facility] eGFR 121 >=60 mL/min/1. 73m2 LAB CHEMISTRY METHOD 09/04/2025 6:04 PM [facility] Comment:Calculation based on the Chronic Kidney Disease Epidemiology Collaboration (CKD-EPI) equation refit without adjustment for race. BUN/Creatinine Ratio 21.5 LAB CHEMISTRY METHOD 09/04/2025 6:04 PM [facility] Calcium 9.4 8.5 - 10.5 mg/dL LAB CHEMISTRY METHOD 09/04/2025 6:04 PM [facility] AST (SGOT) 20 10 - 42 unit/L LAB CHEMISTRY METHOD 09/04/2025 6:04 PM [facility] ALT (SGPT) 29 10 - 60 unit/L LAB CHEMISTRY METHOD 09/04/2025 6:04 PM [facility] Alkaline Phosphatase 82 42 - 121 unit/L LAB CHEMISTRY METHOD 09/04/2025 6:04 PM [facility] Total Protein 7.0 6.0 - 8.0 g/dL LAB CHEMISTRY METHOD 09/04/2025 6:04 PM EDT [facility] Albumin 3.8 3.2 - 5.0 g/dL LAB CHEMISTRY METHOD 09/04/2025 6:04 PM EDT [facility] Total Bilirubin 0.3 0.0 - 1.4 mg/dL LAB CHEMISTRY METHOD 09/04/2025 6:04 PM EDT [facility] Blood Venous blood specimen / Unknown Venipuncture / Unknown 09/04/2025 10:43 AM EDT 09/04/2025 10:43 AM EDT Christina Terrazas NP LAB BLOOD ORDERABLES Final Resul t [facility] [address] [place] [address], [place] [phone] * External clinical lab (06/21/2025) Provider Rigoberto Onbase LAB BLOOD ORDERABLES Fin al Result * Hepatitis C Screening (10/05/2019) Hepatitis C Screening abstracted Historical Provider HEALTH MAINTENANCE Final Result * Pap Smear (06/26/2015) Pap smear negative, abstracted Historical Provider HEALTH MAINTENANCE Final Result from Last 3 Months or Most Recently Relevant to Health Maintenance Insurance [facility] [address] [place] [address] Care Teams Photogrammetric Surveyor Relationship Specialty Start Date End Date Constantino Sanders MD [address] [facility] [address] [place] [address] PCP - General Internal Medicine 10/05/24
--- OUTSIDE RECORDS SUMMARY | 2025-09-05 17:36 | XMS_ITS | Encounter Summary ---
Demographics Address [address] [place] [address] Home Phone Mobile Phone Email Address Preferred Language en Marital Status Mandaeism Affiliation Unknown Race Other Race Ethnic Group or Author Organization [facility] Address [address] [place] [address] Support Name Relationship Address Phone Ale Uribe Significant other [address] [place] [address] Care Team Providers Care Chain Hooker Name Role Phone Constantino Sanders MD Primary Care Provider [phone] Encounter Details Date Type Department Care Team ([facility] Contact Info) Description 09/05/2025 Results Follow-Up Internal Medicine - [place] [address] [facility] [address] [place] [address] Christina Terrazas NP [address] [place] [address] Social History Tobacco Use Types Packs/Day Years [...] PM EDT documented as of this encounter Ordered Prescriptions Prescription Sig Dispense Quantity Refills Last Filled Start Date End Date cholecalciferol (VITAMIN D-3) 50 mcg (2,000 unit) tabletIndications: Vitamin D deficiency Take 1 tablet (2,000 Units total) by mouth 1 (one) time each day. 90 tablet 3 09/05/2025 09/05/2026 documented in this encounter Plan of Treatment Upcoming Encounters Date Type Department Care Team (Late st Contact Info) Description 09/05/2026 9:00 AM EDT Office Visit Internal Medicine - [place] 175 [facility] [address] [place] [address] Christina Terrazas NP 175 [facility] [address] [place] [address] documented as of this encounter Visit Diagnoses Diagnosis Vitamin D deficiency- Primary documented in this encounter Care Teams Chain Hooker Relationship Specialty Start Date End Date Constantino Sanders MD 175 [facility] [address] [place] [address] PCP - General Internal Medicine 10/05/24 documented as of this encounter
--- OUTSIDE RECORDS SUMMARY | 2025-09-05 17:37 | XMS_ITS | Encounter Summary ---
Demographics Address [address] [place] [address] Home Phone Mobile Phone Email Address Preferred Language en Marital Status Rastafarian Affiliation Unknown Race Other Race Ethnic Group or Author Organization [facility] Address [address] [place] [address] Support Name Relationship Address Phone Ale Uribe Significant other [address] [place] [address] Care Team Providers Care Cavalry Officer Name Role Phone Constantino Sanders MD Primary Care Provider Reason for Visit * Reason Onset Date Comments Forms ( FMLA) 09/04/2025 Encounter Details Date Type Department Care Team ([facility] st Contact Info) Description 09/04/2025 Telephone Internal Medicine - [place] [address] [facility] [address] [facility] [address] [place] [phone] Constantino Sanders MD 175 [facility] [address] [place] [address] Social History Tobacco Use Types Packs/Day Years [...] as of this encounter Progress Notes * Suzi Dawson MA - 09/05/2025 10:02 AM EDT Placed in providers folder for signature. * Temo Ramires - 09/04/2025 10:01 AM EDT Patient dropped off FMLA forms for serious Health conditions and care for a family member for her spouse to care for her to be completed. Patient is requesting a Intermittent leave for flare ups. 2 days a week. Patient requested for forms to be faxed to [phone] # [phone] documented in this encounter Plan of Treatment Upcoming Encounters Date Type Department Care Team (Late st Contact Info) Description 09/05/2026 9:00 AM EDT Office Visit Internal Medicine - [place] [address] [facility] [address] [facility] [address] [place] [address] Christina Terrazas NP [address] [facility] [address] [place] [address] documented as of this encounter Visit Diagnoses Not on filedocumented in this encounter Care Teams Cavalry Officer Relationship Specialty Start Date End Date Constantino Sanders MD [address] [facility] [address] [place] [address] PCP - General Internal Medicine 10/05/24 documented as of this encounter
== END 2025-09-05 13:52 | disposition home or self-care (01) ==
LOC: HO.HMGAL 13:52
PROVIDERS: PCP Internal Medicine; Visit Provider Registered Nurse Emergency
DX: J30.89 Other allergic rhinitis (principal)
CPT/HCPCS: 95117; 95165

== ENCOUNTER 2025-09-12 15:06 | Outpatient (AMB) | payer OTHER, SELFPAY ==
--- OUTSIDE RECORDS SUMMARY | 2025-09-12 21:23 | XMS_ITS | Clinical Summary ---
Demographics Address [address] [place] [address] Home Phone Mobile Phone Email Address Preferred Language en Marital Status Mosque Affiliation Unknown Race Other Race Ethnic Group or Author Organization Patient Business Ser [facility] [place] Address [address] [place] [address] Support Name Relationship Address Phone Ale Manley Significant other [address] [place] [address] Care Team Providers Care Power Barker Operator Name Role Phone Constantino aSnders MD Primary Care Provider [phone] Allergies Active Allergy Reactions Criticality Noted Date [...] pain/palpitations Depression 10/05/2024 Seropositive rheumatoid arth ritis [place] [place] [facility] [place]28[place] 10/05/2024 COVID-19 10/05/2024 Encounters Date Type Department Care Team Description 09/05/2025 Results Follow-Up Internal Medicine [facility] [address] [facility] [address] [place] [address] Christina Terrazas NP 09/04/2025 10:00 AM EDT Office Visit Internal Medicine [facility] [address] [facility] [address] [place] [address] Christina Terrazas NP Routine adult health maintenance (Primary Dx); Screening for ischemic heart disease; Screening for diabetes mellitus; Vitamin B12 deficiency; Vitamin D deficiency; Seropositive rheumatoid arthritis ([facility] [place], [facility] [place]28[place] Nodulocystic acne 09/04/2025 Telephone Internal Medicine [facility] [address] [facility] [address] [place] [address] Constantino Sanders MD 07/05/2025 2:30 PM EDT Office Visit Internal Medicine [facility] [address] [facility] [address] [place] [address] Constantino Sanders MD Nodulocystic acne (Primary Dx); Folliculitis 06/27/2025 Telephone Gastroenterology - [address] [facility] [address] [facility] [address] [place] [address] Alona Benjamin PA from Last 3 Months Immunizations Immunization Administration Dates Next Due DTP 06/05/1998, 5,1994,07/21 HPV, Quadrivalent 06/06/2008,06/29/2007,01/06/20 07 Hepatitis B ([id number] , Recombivax HB-Adult) 19yo and older 05/27/1995,1994,1994 [...] Panic attack 07/19/2013 DX:Panic attack; COMMENT: Seen [facility] 4- panic attack anxiety (c/o sob chest [...] AM EDT Office Visit Internal Medicine - [address] [place] [address] Christina Terrazas, JACKIE 175 [facility] [address] [place] [address] Health Maintenance Due Date Last Done Comments [...] LAB CHEMISTRY METHOD 09/04/2025 6:06 PM EDT [facility] ([facility]) [facility] Blood Venous blood specimen / Unknown Venipuncture / Unknown 09/04/2025 10:43 AM EDT 09/04/2025 10:43 AM EDT Tanzeem Alam ATTENDANT [employer] LAB BLOOD ORDERABLES Final Resul t Performing Organization Address [facility]/ZIP Co de Phone Number [facility] [address] [place] [address], [place] [phone] * (ABNORMAL) Lipid panel with reflex to direct LDL (09/04/2025 10:43 AM EDT) Cholesterol 195 0 - 200 mg/dL LAB CHEMISTRY METHOD 09/04/2025 6:04 PM EDT [facility] Triglycerides 107 0 - 150 mg/dL LAB CHEMISTRY METHOD 09/04/2025 6:04 PM EDT [facility] HDL 53 >=40 mg/dL LAB CHEMISTRY METHOD 09/04/2025 6:04 PM EDT [facility] LDL Calculated 121(H) 0 - 100 mg/dL LAB CHEMISTRY METHOD 09/04/2025 6:04 PM EDT [facility] Comment:Estimated LDL Calcul ated using equation: Total cholesterol - HDL cholesterol - (Triglycerides/5) VLDL Cholesterol Maverick 21.4 mg/dL LAB CHEMISTRY METHOD 09/04/2025 6:04 PM EDT [facility] Non HDL Chol. (LDL+VLDL) 142 <145 mg/dL LAB CHEMISTRY METHOD 09/04/2025 6:04 PM EDT [facility] Chol/HDL Ratio 3.7 0.0 - 4.4 LAB CHEMISTRY METHOD 09/04/2025 6:04 PM EDT [facility] Blood Venous blood specimen / Unknown Venipuncture / Unknown 09/04/2025 10:43 AM EDT 09/04/2025 10:43 AM EDT Darshanfroylanchapin Garciachapin ATTEND[employer] LAB BLOOD ORDERABLES Final Resul t [facility] [address] [place] [address], [place] [phone] * (ABNORMAL) Vitamin D 25 hydroxy (09/04/2025 10:43 AM EDT) Pathologist [facility] Vit D, 25-Hydroxy 28.9(L) 30.0 - 80.0 ng/mL LAB CHEMISTRY METHOD 09/04/2025 6:06 PM EDT [facility] Blood Venous blood specimen / Unknown Venipuncture / Unknown 09/04/2025 10:43 AM EDT 09/04/2025 10:43 AM EDT us Christina Terrazas NP LAB BLOOD ORDERABLES Final Resul t [facility] [address] [place] [address], * (ABNORMAL) Complete blood count (09/04/2025 10:43 AM EDT) [facility] WBC 6.3 4.8 - 10.8 K/mcL LAB HEMETOLOGY METHOD 09/04/2025 2:14 PM EDT [facility] RBC 5.10(H) 3.80 - 4.80 M/mcL LAB HEMETOLOGY METHOD 09/04/2025 2:14 PM EDT [facility] Hemoglobin 13.7 11.5 - 16.0 g/dL LAB HEMETOLOGY METHOD 09/04/2025 2:14 PM EDT [facility] Hematocrit 42.2 35.0 - 47.0 % LAB HEMETOLOGY METHOD 09/04/2025 2:14 PM EDT [facility] MCV 83.6 79.0 - 98.0 FL LAB HEMETOLOGY METHOD 09/04/2025 2:14 PM EDT [facility] MCH 27.1 27.0 - 32.0 pcg LAB HEMETOLOGY METHOD 09/04/2025 2:14 PM EDT [facility] MCHC 32.5 32.0 - 37.0 g/dL LAB HEMETOLOGY METHOD 09/04/2025 2:14 PM EDT [facility] RDW 12.5 11.0 - 15.0 % LAB HEMETOLOGY METHOD 09/04/2025 2:14 PM EDT [facility] Platelets 313 130 - 400 K/mcL LAB HEMETOLOGY METHOD 09/04/2025 2:14 PM EDT [facility] MPV 9.9 7.0 - 11.0 FL LAB HEMETOLOGY METHOD 09/04/2025 2:14 PM EDT [facility] NRBC 0.0 <1.0 % LAB HEMETOLOGY METHOD 09/04/2025 2:14 PM EDT [facility] NRBC Absolute 0.00 <0.10 K/mcL LAB HEMETOLOGY METHOD 09/04/2025 2:14 PM EDT [facility] Blood Venous blood specimen / Unknown Venipuncture / Unknown 09/04/2025 10:43 AM EDT 09/04/2025 10:43 AM EDT us Christina Terrazas ATTEND[employer] LAB BLOOD ORDERABLES Final Resul t Performing Organization Address City/[facility]/ZIP Co de Phone Number [facility] [address] [place] [address], * Magnesium (09/04/2025 10:43 AM EDT) Magnesium 2.0 1.9 - 2.6 mg/dL LAB CHEMISTRY METHOD 09/04/2025 5:39 PM EDT [facility] Blood Venous blood specimen / Unknown Venipuncture / Unknown 09/04/2025 10:43 AM EDT 09/04/2025 10:43 AM EDT us Christina Terrazas ATTEND[employer] LAB BLOOD ORDERABLES Final Resul t [facility] [address] [place] [address], [place] [phone] * Hemoglobin A1c (09/04/2025 10:43 AM EDT) [facility] Hemoglobin A1C 5.4 <6.5 % LAB CHEMISTRY METHOD 09/04/2025 9:57 PM EDT [facility] Mean Bld Glu Estim. 108 mg/dL LAB CHEMISTRY METHOD 09/04/2025 9:57 PM EDT [facility] Blood Venous blood specimen / Unknown Venipuncture / Unknown 09/04/2025 10:43 AM EDT 09/04/2025 10:43 AM EDT Christina Terrazas NP LAB BLOOD ORDERABLES Final Resul t Performing Organization Address [facility]/ZIP Co de Phone Number [facility] [address] [place] [address], * Vitamin B12 (09/04/2025 10:43 AM EDT) [facility] Vitamin B-12 521 250 - 900 pcg/mL LAB CHEMISTRY METHOD 09/04/2025 6:04 PM EDT [facility] Blood Venous blood specimen / Unknown Venipuncture / Unknown 09/04/2025 10:43 AM EDT 09/04/2025 10:43 AM EDT us Christina Terrazas NP LAB BLOOD ORDERABLES Final Resul t [facility] [address] [place] [address], [place] [phone] * (ABNORMAL) Comprehensive metabolic panel (09/04/2025 10:43 AM EDT) [facility] Sodium 139 133 - 145 mmol/L LAB CHEMISTRY METHOD 09/04/2025 6:04 PM EDT [facility] Potassium 4.4 3.5 - 5.5 mmol/L LAB CHEMISTRY METHOD 09/04/2025 6:04 PM [facility] Chloride 106 96 - 110 mmol/L LAB CHEMISTRY METHOD 09/04/2025 6:04 PM [facility] CO2 28 21 - 32 mmol/L LAB CHEMISTRY METHOD 09/04/2025 6:04 PM [facility] Anion Gap 5 3 - 11 LAB CHEMISTRY METHOD 09/04/2025 6:04 PM [facility] Glucose 111(H) 70 - 100 mg/dL LAB CHEMISTRY METHOD 09/04/2025 6:04 PM [facility] BUN 14 5 - 25 mg/dL LAB CHEMISTRY METHOD 09/04/2025 6:04 PM [facility] Creatinine 0.65 0.50 - 1.10 mg/dL LAB CHEMISTRY METHOD 09/04/2025 6:04 PM [facility] eGFR 121 >=60 mL/min/1. 73m2 LAB CHEMISTRY METHOD 09/04/2025 6:04 PM [facility] Comment:Calculation based on the Chronic Kidney Disease Epidemiology Collaboration (CKD-EPI) equation refit without adjustment for race. BUN/Creatinine Ratio 21.5 LAB CHEMISTRY METHOD 09/04/2025 6:04 PM [facility] Calcium 9.4 8.5 - 10.5 mg/dL LAB CHEMISTRY METHOD 09/04/2025 6:04 PM [facility] AST (SGOT) 20 10 - 42 unit/L LAB CHEMISTRY METHOD 09/04/2025 6:04 PM [facility] ALT (SGPT) 29 10 - 60 unit/L LAB CHEMISTRY METHOD 09/04/2025 6:04 PM [facility] Alkaline Phosphatase 82 42 - 121 unit/L LAB CHEMISTRY METHOD 09/04/2025 6:04 PM [facility] Total Protein 7.0 6.0 - 8.0 g/dL LAB CHEMISTRY METHOD 09/04/2025 6:04 PM EDT [facility] Albumin 3.8 3.2 - 5.0 g/dL LAB CHEMISTRY METHOD 09/04/2025 6:04 PM EDT [facility] Total Bilirubin 0.3 0.0 - 1.4 mg/dL LAB CHEMISTRY METHOD 09/04/2025 6:04 PM EDT [facility] Blood Venous blood specimen / Unknown Venipuncture / Unknown 09/04/2025 10:43 AM EDT 09/04/2025 10:43 AM EDT Christina Terrazas NP LAB BLOOD ORDERABLES Final Resul t [facility] [address] [place] [address], [place] [phone] * External clinical lab (06/21/2025) Provider Rigoberto On[employer] LAB BLOOD ORDERABLES Fin al Result * Hepatitis C Screening (10/05/2019) Hepatitis C Screening abstracted Historical Provider HEALTH MAINTENANCE Final Result * Pap Smear (06/26/2015) Pap smear negative, abstracted Historical Provider HEALTH MAINTENANCE Final Result from Last 3 Months or Most Recently Relevant to Health Maintenance Insurance [facility] [address] [place] [address] Care Teams Power Barker Operator Relationship Specialty Start Date End Date Constantino Sanders MD 175 [facility] [address] [place] [address] PCP - General Internal Medicine 10/05/24
--- OUTSIDE RECORDS SUMMARY | 2025-09-12 21:23 | XMS_ITS | Encounter Summary ---
Demographics Address [address] [place] [address] Home Phone Mobile Phone Email Address Preferred Language en Marital Status Baptism Affiliation Unknown Race Other Race Ethnic Group or Author Organization [facility] Address [address] [place] [address] Support Name Relationship Address Phone Ale Uribe Significant other [address] [place] [address] Care Team Providers Care Steel Rule Die Maker Apprentice Name Role Phone Constantino Sanders MD Primary Care Provider [phone] Encounter Details Date Type Department Care Team ([facility] Contact Info) Description 09/05/2025 Results Follow-Up Internal Medicine - [place] [address] [facility] [address] [place] [address] Christina Terrazas NP [address] [place] [address] Social History Tobacco Use Types Packs/Day Years [...] AM EDT Office Visit Internal Medicine - [place] 175 [facility] [address] [place] [address] Christina Terrazas NP 175 [facility] [address] [place] [address] documented as of this encounter Visit Diagnoses Diagnosis Vitamin D deficiency- Primary documented in this encounter Care Teams Steel Rule Die Maker Apprentice Relationship Specialty Start Date End Date Constantino Sanders MD 175 [facility] [address] [place] [address] PCP - General Internal Medicine 10/05/24 documented as of this encounter
== END 2025-09-12 15:07 | disposition home or self-care (01) ==
LOC: HO.HMGAL 15:06
PROVIDERS: PCP Internal Medicine; Visit Provider Registered Nurse Emergency
DX: J30.89 Other allergic rhinitis (principal)
CPT/HCPCS: 95117; 95165

== ENCOUNTER 2025-09-19 13:40 | Outpatient (AMB) | payer OTHER, SELFPAY ==
--- OUTSIDE RECORDS SUMMARY | 2025-09-19 17:25 | XMS_ITS | Encounter Summary ---
Demographics Address [address] [place] [address] Home Phone Mobile Phone Email Address Preferred Language en Marital Status Moravian Affiliation Unknown Race Other Race Ethnic Group or Author Organization [facility] Address [address] [place] [address] Support Name Relationship Address Phone Ale Uribe Significant other [address] [place] [address] Care Team Providers Care Molder Operator Name Role Phone Constantino Sanders MD Primary Care Provider [phone] Encounter Details Date Type Department Care Team ([facility] Contact Info) Description 09/05/2025 Results Follow-Up Internal Medicine - [place] [address] [facility] [address] [place] [address] Christina Terrazas NP [address] [place] [address] Social History Tobacco Use Types Packs/Day Years [...] AM EDT Office Visit Internal Medicine - [place] 175 [facility] [address] [place] [address] Christina Terrazas NP 175 [facility] [address] [place] [address] documented as of this encounter Visit Diagnoses Diagnosis Vitamin D deficiency- Primary documented in this encounter Care Teams Molder Operator Relationship Specialty Start Date End Date Constantino Sanders MD 175 [facility] [address] [place] [address] PCP - General Internal Medicine 10/05/24 documented as of this encounter
--- OUTSIDE RECORDS SUMMARY | 2025-09-19 17:25 | XMS_ITS | Clinical Summary ---
Demographics Address [address] [place] [address] Home Phone Mobile Phone Email Address Preferred Language en Marital Status Cheondoism Affiliation Unknown Race Other Race Ethnic Group or Author Organization Patient Business Ser [facility] [place] Address [address] [place] [address] Support Name Relationship Address Phone Ale Manley Significant other [address] [place] [address] Care Team Providers Care Machinist Apprentice Wood Name Role Phone Constantino Sanders MD Primary Care Provider [phone] Allergies Active Allergy Reactions Criticality Noted Date [...] pain/palpitations Depression 10/05/2024 Seropositive rheumatoid arth ritis ([facility] V24, [facility] V28) 10/05/2024 COVID-19 10/05/2024 Encounters Date Type Department Care Team Description 09/05/2025 Results Follow-Up Internal Medicine [facility] 175 [facility] [address] [place] [address] Christina Terrazas NP 09/04/2025 10:00 AM EDT Office Visit Internal Medicine [facility] 175 [facility] [address] [place] [address] Christina Terrazas NP Routine adult health maintenance (Primary Dx); Screening for ischemic heart disease; Screening for diabetes mellitus; Vitamin B12 deficiency; Vitamin D deficiency; Seropositive rheumatoid arthritis ([facility] V24, [facility] V28); Nodulocystic acne 09/04/2025 Telephone Internal Medicine [facility] 175 [facility] [address] [place] [address] Constantino Sanders MD 07/05/2025 2:30 PM EDT Office Visit Internal Medicine [facility] 175 [facility] [address] [place] [address] Constantino Sanders MD Nodulocystic acne (Primary Dx); Folliculitis 06/27/2025 Telephone Gastroenterology - 299 [facility] 299 [facility] [address] [place] [address] Alona Benjamin PA from Last 3 Months Immunizations Immunization Administration Dates Next Due DTP 06/05/1998, 5,1994,07/21 HPV, Quadrivalent 06/06/2008,06/29/2007,01/06/20 07 Hepatitis B (Nvktvei-J-Ilxeh , Recombivax HB-Adult) 19yo and older 05/27/1995,1994,1994 [...] Panic attack 07/19/2013 DX:Panic attack; COMMENT: Seen [facility] 4- panic attack anxiety (c/o sob chest [...] AM EDT Office Visit Internal Medicine - [address] [place] [address] Christina Terrazas, JACKIE 175 [facility] [address] [place] [address] Health Maintenance Due Date Last Done Comments [...] LAB CHEMISTRY METHOD 09/04/2025 6:06 PM EDT [facility]) [facility] Blood Venous blood specimen / Unknown Venipuncture / Unknown 09/04/2025 10:43 AM EDT 09/04/2025 10:43 AM EDT Tanzeem Alam COMB FIXER LAB BLOOD ORDERABLES Final Resul t Performing Organization Address [facility]/ZIP Co de Phone Number [facility] [address] [place] [address], [place] [phone] * (ABNORMAL) Lipid panel with reflex to direct LDL (09/04/2025 10:43 AM EDT) Cholesterol 195 0 - 200 mg/dL LAB CHEMISTRY METHOD 09/04/2025 6:04 PM EDT [facility] Triglycerides 107 0 - 150 mg/dL LAB CHEMISTRY METHOD 09/04/2025 6:04 PM EDT [facility] HDL 53 >=40 mg/dL LAB CHEMISTRY METHOD 09/04/2025 6:04 PM EDT [facility] LDL Calculated 121(H) 0 - 100 mg/dL LAB CHEMISTRY METHOD 09/04/2025 6:04 PM EDT [facility] Comment:Estimated LDL Calcul ated using equation: Total cholesterol - HDL cholesterol - (Triglycerides/5) VLDL Cholesterol Maverick 21.4 mg/dL LAB CHEMISTRY METHOD 09/04/2025 6:04 PM EDT [facility] Non HDL Chol. (LDL+VLDL) 142 <145 mg/dL LAB CHEMISTRY METHOD 09/04/2025 6:04 PM EDT [facility] Chol/HDL Ratio 3.7 0.0 - 4.4 LAB CHEMISTRY METHOD 09/04/2025 6:04 PM EDT [facility] Blood Venous blood specimen / Unknown Venipuncture / Unknown 09/04/2025 10:43 AM EDT 09/04/2025 10:43 AM EDT Darshanfroylanchapin Garciachapin COMB FIXER LAB BLOOD ORDERABLES Final Resul t [facility] [address] [place] [address], [place] [phone] * (ABNORMAL) Vitamin D 25 hydroxy (09/04/2025 10:43 AM EDT) Pathologist [facility] Vit D, 25-Hydroxy 28.9(L) 30.0 - 80.0 ng/mL LAB CHEMISTRY METHOD 09/04/2025 6:06 PM EDT [facility] Blood Venous blood specimen / Unknown Venipuncture / Unknown 09/04/2025 10:43 AM EDT 09/04/2025 10:43 AM EDT us Christina Terrazas NP LAB BLOOD ORDERABLES Final Resul t [facility] [address] [place] [address], * (ABNORMAL) Complete blood count (09/04/2025 10:43 AM EDT) [facility] WBC 6.3 4.8 - 10.8 K/mcL LAB HEMETOLOGY METHOD 09/04/2025 2:14 PM EDT [facility] RBC 5.10(H) 3.80 - 4.80 M/mcL LAB HEMETOLOGY METHOD 09/04/2025 2:14 PM EDT [facility] Hemoglobin 13.7 11.5 - 16.0 g/dL LAB HEMETOLOGY METHOD 09/04/2025 2:14 PM EDT [facility] Hematocrit 42.2 35.0 - 47.0 % LAB HEMETOLOGY METHOD 09/04/2025 2:14 PM EDT [facility] MCV 83.6 79.0 - 98.0 FL LAB HEMETOLOGY METHOD 09/04/2025 2:14 PM EDT [facility] MCH 27.1 27.0 - 32.0 pcg LAB HEMETOLOGY METHOD 09/04/2025 2:14 PM EDT [facility] MCHC 32.5 32.0 - 37.0 g/dL LAB HEMETOLOGY METHOD 09/04/2025 2:14 PM EDT [facility] RDW 12.5 11.0 - 15.0 % LAB HEMETOLOGY METHOD 09/04/2025 2:14 PM EDT [facility] Platelets 313 130 - 400 K/mcL LAB HEMETOLOGY METHOD 09/04/2025 2:14 PM EDT [facility] MPV 9.9 7.0 - 11.0 FL LAB HEMETOLOGY METHOD 09/04/2025 2:14 PM EDT [facility] NRBC 0.0 <1.0 % LAB HEMETOLOGY METHOD 09/04/2025 2:14 PM EDT [facility] NRBC Absolute 0.00 <0.10 K/mcL LAB HEMETOLOGY METHOD 09/04/2025 2:14 PM EDT [facility] Blood Venous blood specimen / Unknown Venipuncture / Unknown 09/04/2025 10:43 AM EDT 09/04/2025 10:43 AM EDT us Christina Terrazas COMB FIXER LAB BLOOD ORDERABLES Final Resul t Performing Organization Address City/[facility]/ZIP Co de Phone Number [facility] [address] [place] [address], * Magnesium (09/04/2025 10:43 AM EDT) Magnesium 2.0 1.9 - 2.6 mg/dL LAB CHEMISTRY METHOD 09/04/2025 5:39 PM EDT [facility] Blood Venous blood specimen / Unknown Venipuncture / Unknown 09/04/2025 10:43 AM EDT 09/04/2025 10:43 AM EDT us Christina Terrazas COMB FIXER LAB BLOOD ORDERABLES Final Resul t [facility] [address] [place] [address], [place] [phone] * Hemoglobin A1c (09/04/2025 10:43 AM EDT) [facility] Hemoglobin A1C 5.4 <6.5 % LAB CHEMISTRY METHOD 09/04/2025 9:57 PM EDT [facility] Mean Bld Glu Estim. 108 mg/dL LAB CHEMISTRY METHOD 09/04/2025 9:57 PM EDT [facility] Blood Venous blood specimen / Unknown Venipuncture / Unknown 09/04/2025 10:43 AM EDT 09/04/2025 10:43 AM EDT Christina Terrazas NP LAB BLOOD ORDERABLES Final Resul t Performing Organization Address [facility]/ZIP Co de Phone Number [facility] [address] [place] [address], * Vitamin B12 (09/04/2025 10:43 AM EDT) [facility] Vitamin B-12 521 250 - 900 pcg/mL LAB CHEMISTRY METHOD 09/04/2025 6:04 PM EDT [facility] Blood Venous blood specimen / Unknown Venipuncture / Unknown 09/04/2025 10:43 AM EDT 09/04/2025 10:43 AM EDT us Christina Terrazas NP LAB BLOOD ORDERABLES Final Resul t [facility] [address] [place] [address], [place] [phone] * (ABNORMAL) Comprehensive metabolic panel (09/04/2025 10:43 AM EDT) [facility] Sodium 139 133 - 145 mmol/L LAB CHEMISTRY METHOD 09/04/2025 6:04 PM EDT [facility] Potassium 4.4 3.5 - 5.5 mmol/L LAB CHEMISTRY METHOD 09/04/2025 6:04 PM [facility] Chloride 106 96 - 110 mmol/L LAB CHEMISTRY METHOD 09/04/2025 6:04 PM [facility] CO2 28 21 - 32 mmol/L LAB CHEMISTRY METHOD 09/04/2025 6:04 PM [facility] Anion Gap 5 3 - 11 LAB CHEMISTRY METHOD 09/04/2025 6:04 PM [facility] Glucose 111(H) 70 - 100 mg/dL LAB CHEMISTRY METHOD 09/04/2025 6:04 PM [facility] BUN 14 5 - 25 mg/dL LAB CHEMISTRY METHOD 09/04/2025 6:04 PM [facility] Creatinine 0.65 0.50 - 1.10 mg/dL LAB CHEMISTRY METHOD 09/04/2025 6:04 PM [facility] eGFR 121 >=60 mL/min/1. 73m2 LAB CHEMISTRY METHOD 09/04/2025 6:04 PM [facility] Comment:Calculation based on the Chronic Kidney Disease Epidemiology Collaboration (CKD-EPI) equation refit without adjustment for race. BUN/Creatinine Ratio 21.5 LAB CHEMISTRY METHOD 09/04/2025 6:04 PM [facility] Calcium 9.4 8.5 - 10.5 mg/dL LAB CHEMISTRY METHOD 09/04/2025 6:04 PM [facility] AST (SGOT) 20 10 - 42 unit/L LAB CHEMISTRY METHOD 09/04/2025 6:04 PM [facility] ALT (SGPT) 29 10 - 60 unit/L LAB CHEMISTRY METHOD 09/04/2025 6:04 PM [facility] Alkaline Phosphatase 82 42 - 121 unit/L LAB CHEMISTRY METHOD 09/04/2025 6:04 PM [facility] Total Protein 7.0 6.0 - 8.0 g/dL LAB CHEMISTRY METHOD 09/04/2025 6:04 PM EDT [facility] Albumin 3.8 3.2 - 5.0 g/dL LAB CHEMISTRY METHOD 09/04/2025 6:04 PM EDT [facility] Total Bilirubin 0.3 0.0 - 1.4 mg/dL LAB CHEMISTRY METHOD 09/04/2025 6:04 PM EDT [facility] Blood Venous blood specimen / Unknown Venipuncture / Unknown 09/04/2025 10:43 AM EDT 09/04/2025 10:43 AM EDT Christina Terrazas NP LAB BLOOD ORDERABLES Final Resul t [facility] [address] [place] [address], [place] [phone] * External clinical lab (06/21/2025) Provider Rigoberto Onbase LAB BLOOD ORDERABLES Fin al Result * Hepatitis C Screening (10/05/2019) Hepatitis C Screening abstracted Historical Provider HEALTH MAINTENANCE Final Result * Pap Smear (06/26/2015) Pap smear negative, abstracted Historical Provider HEALTH MAINTENANCE Final Result from Last 3 Months or Most Recently Relevant to Health Maintenance Insurance [facility] [address] [place] [address] Care Teams Machinist Apprentice Wood Relationship Specialty Start Date End Date Constantino Sanders MD 175 [facility] [address] [place] [address] PCP - General Internal Medicine 10/05/24
== END 2025-09-19 13:43 | disposition home or self-care (01) ==
LOC: HO.HMGAL 13:40
PROVIDERS: PCP Internal Medicine; Visit Provider Registered Nurse Emergency
DX: J30.89 Other allergic rhinitis (principal)
CPT/HCPCS: 95117; 95165

== ENCOUNTER 2025-09-26 15:32 | Outpatient (AMB) | payer OTHER, SELFPAY ==
--- OUTSIDE RECORDS SUMMARY | 2025-09-26 18:24 | XMS_ITS | Clinical Summary ---
Demographics Address [address] [place] [address] Home Phone Mobile Phone Email Address Preferred Language en Marital Status Roman Catholic Affiliation Unknown Race Other Race Ethnic Group or Author Organization Patient Business Ser [facility] [place] Address [address] [place] [address] Support Name Relationship Address Phone Ale Manley Significant other [address] [place] [address] Care Team Providers Care Medical Educator Name Role Phone Constantino Sanders MD Primary [...] pain/palpitations Depression 10/05/2024 Seropositive rheumatoid arth ritis ([facility] V24, [facility] V28) 10/05/2024 COVID-19 10/05/2024 Encounters Date Type Department Care Team Description 09/05/2025 Results Follow-Up Internal Medicine [facility] 175 [facility] [address] [place] [address] Christina Terrazas NP 09/04/2025 10:00 AM EDT Office Visit Internal Medicine [facility] 175 [facility] [address] [place] [address] Christina Terrazas NP Routine adult health maintenance (Primary Dx); Screening for ischemic heart disease; Screening for diabetes mellitus; Vitamin B12 deficiency; Vitamin D deficiency; Seropositive rheumatoid arthritis ([facility] V24, [facility] V28); Nodulocystic acne 09/04/2025 Telephone Internal Medicine [facility] 175 [facility] [address] [place] [address] Constantino Sanders MD 07/05/2025 2:30 PM EDT Office Visit Internal Medicine [facility] 175 [facility] [address] [place] [address] Constantino Sanders MD Nodulocystic acne (Primary Dx); Folliculitis 06/27/2025 Telephone Gastroenterology - 299 [facility] 299 [facility] [address] [place] [address] Alona Benjamin PA from Last 3 Months Immunizations Immunization Administration Dates Next Due DTP 06/05/1998, 5,1994,07/21 HPV, Quadrivalent 06/06/2008,06/29/2007,01/06/20 07 Hepatitis B (Anoqulv-E-Owvik , Recombivax HB-Adult) 19yo and older 05/27/1995,1994,1994 [...] Panic attack 07/19/2013 DX:Panic attack; COMMENT: Seen [facility] 4- panic attack anxiety (c/o sob chest [...] AM EDT Office Visit Internal Medicine - [address] [place] [address] Christina Terrazas, JACKIE 175 [facility] [address] [place] [address] Health Maintenance Due Date Last Done Comments [...] AM EDT Screening for ischemic heart disease HEPATITIS C SCREENING Routine 10/05/2019 PAP SMEAR Routine 06/26/2015 from Last 3 Months or Most Recently Relevant to Health Maintenance Results * Thyroid stimulating hormone with reflex to free t4 and free t3 (09/04/2025 10:43 AM EDT) TSH 2.00 0.40 - 4.00 mcIU/mL LAB CHEMISTRY METHOD 09/04/2025 6:06 PM EDT [facility] Blood Venous blood specimen / Unknown Venipuncture / Unknown 09/04/2025 10:43 AM EDT 09/04/2025 10:43 AM EDT us Christina Terrazas NP LAB BLOOD ORDERABLES Final Resul t Performing Organization Address City/[facility]/ZIP Co de Phone Number [facility] [address] [place] [address], [place] [phone] * (ABNORMAL) Lipid panel with reflex to direct LDL (09/04/2025 10:43 AM EDT) Cholesterol 195 0 - 200 mg/dL LAB CHEMISTRY METHOD 09/04/2025 6:04 PM EDT [facility] Triglycerides 107 0 - 150 mg/dL LAB CHEMISTRY METHOD 09/04/2025 6:04 PM EDT [facility] HDL 53 >=40 mg/dL LAB CHEMISTRY METHOD 09/04/2025 6:04 PM EDT [facility] LDL Calculated 121(H) 0 - 100 mg/dL LAB CHEMISTRY METHOD 09/04/2025 6:04 PM EDT [facility] Comment:Estimated LDL Calcul ated using equation: Total cholesterol - HDL cholesterol - (Triglycerides/5) VLDL Cholesterol Maverick 21.4 mg/dL LAB CHEMISTRY METHOD 09/04/2025 6:04 PM EDT [facility] Non HDL Chol. (LDL+VLDL) 142 <145 mg/dL LAB CHEMISTRY METHOD 09/04/2025 6:04 PM EDT [facility] Chol/HDL Ratio 3.7 0.0 - 4.4 LAB CHEMISTRY METHOD 09/04/2025 6:04 PM EDT [facility] Blood Venous blood specimen / Unknown Venipuncture / Unknown 09/04/2025 10:43 AM EDT 09/04/2025 10:43 AM EDT Christina Terrazas NP LAB BLOOD ORDERABLES Final Resul t [facility] [address] [place] [address], [place] [phone] * (ABNORMAL) Vitamin D 25 hydroxy (09/04/2025 10:43 AM EDT) Pathologist [facility] Vit D, 25-Hydroxy 28.9(L) 30.0 - 80.0 ng/mL LAB CHEMISTRY METHOD 09/04/2025 6:06 PM EDT [facility] Blood Venous blood specimen / Unknown Venipuncture / Unknown 09/04/2025 10:43 AM EDT 09/04/2025 10:43 AM EDT us Christina Terrazas DENTAL MANAGER LAB BLOOD ORDERABLES Final Resul t [facility] [address] [place] [address], * (ABNORMAL) Complete blood count (09/04/2025 10:43 AM EDT) [facility] WBC 6.3 4.8 - 10.8 K/mcL LAB HEMETOLOGY METHOD 09/04/2025 2:14 PM EDT [facility] RBC 5.10(H) 3.80 - 4.80 M/mcL LAB HEMETOLOGY METHOD 09/04/2025 2:14 PM EDT [facility] Hemoglobin 13.7 11.5 - 16.0 g/dL LAB HEMETOLOGY METHOD 09/04/2025 2:14 PM T [facility] Hematocrit 42.2 35.0 - 47.0 % LAB HEMETOLOGY METHOD 09/04/2025 2:14 PM EDT [facility] MCV 83.6 79.0 - 98.0 FL LAB HEMETOLOGY METHOD 09/04/2025 2:14 PM EDT [facility] MCH 27.1 27.0 - 32.0 pcg LAB HEMETOLOGY METHOD 09/04/2025 2:14 [facility] MCHC 32.5 32.0 - 37.0 g/dL LAB HEMETOLOGY METHOD 09/04/2025 2:14 PM EDT [facility] RDW 12.5 11.0 - 15.0 % LAB HEMETOLOGY METHOD 09/04/2025 2:14 PM EDT [facility] Platelets 313 130 - 400 K/mcL LAB HEMETOLOGY METHOD 09/04/2025 2:14 PM EDT [facility] MPV 9.9 7.0 - 11.0 FL LAB HEMETOLOGY METHOD 09/04/2025 2:14 PM EDT [facility] NRBC 0.0 <1.0 % LAB HEMETOLOGY METHOD 09/04/2025 2:14 PM EDT [facility] NRBC Absolute 0.00 <0.10 K/mcL LAB HEMETOLOGY METHOD 09/04/2025 2:14 PM EDT [facility] Blood Venous blood specimen / Unknown Venipuncture / Unknown 09/04/2025 10:43 AM EDT 09/04/2025 10:43 AM EDT us Christina Terrazas DENTAL MANAGER LAB BLOOD ORDERABLES Final Resul t [facility] [address] [place] [address], [place] [phone] * Magnesium (09/04/2025 10:43 AM EDT) Magnesium 2.0 1.9 - 2.6 mg/dL LAB CHEMISTRY METHOD 09/04/2025 5:39 PM EDT [facility] Blood Venous blood specimen / Unknown Venipuncture / Unknown 09/04/2025 10:43 AM EDT 09/04/2025 10:43 AM EDT us Christina Terrazas DENTAL MANAGER LAB BLOOD ORDERABLES Final Resul t [facility] [address] [place] [address], [place] [phone] * Hemoglobin A1c (09/04/2025 10:43 AM EDT) [facility] Hemoglobin A1C 5.4 <6.5 % LAB CHEMISTRY METHOD 09/04/2025 9:57 PM EDT [facility] Mean Bld Glu Estim. 108 mg/dL LAB CHEMISTRY METHOD 09/04/2025 9:57 PM EDT [facility] Blood Venous blood specimen / Unknown Venipuncture / Unknown 09/04/2025 10:43 AM EDT 09/04/2025 10:43 AM EDT Darshanmejia Terrazas NP LAB BLOOD ORDERABLES Final Resul t Performing Organization Address [facility]/ZIP Co de Phone Number [facility] [address] [place] [address], [place] [phone] * Vitamin B12 (09/04/2025 10:43 AM EDT) [facility] Vitamin B-12 521 250 - 900 pcg/mL LAB CHEMISTRY METHOD 09/04/2025 6:04 PM EDT [facility] Blood Venous blood specimen / Unknown Venipuncture / Unknown 09/04/2025 10:43 AM EDT 09/04/2025 10:43 AM EDT Christina Terrazas NP LAB BLOOD ORDERABLES Final Resul t [facility] [address] [place] [address], [place] [phone] * (ABNORMAL) Comprehensive metabolic panel (09/04/2025 10:43 AM EDT) [facility] Sodium 139 133 - 145 mmol/L LAB CHEMISTRY METHOD 09/04/2025 6:04 PM EDT [facility] Potassium 4.4 3.5 - 5.5 [...] LAB CHEMISTRY METHOD 09/04/2025 6:04 PM EDT [facility] Albumin 3.8 3.2 - 5.0 g/dL LAB CHEMISTRY METHOD 09/04/2025 6:04 PM EDT [facility] Total Bilirubin 0.3 0.0 - 1.4 mg/dL LAB CHEMISTRY METHOD 09/04/2025 6:04 PM EDT [facility] Blood Venous blood specimen / Unknown Venipuncture / Unknown 09/04/2025 10:43 AM EDT 09/04/2025 10:43 AM EDT Christina Terrazas NP LAB BLOOD ORDERABLES Final Resul t [facility] [address] [place] [address], * Hepatitis C Screening (10/05/2019) Hepatitis C Screening abstracted Historical Provider HEALTH MAINTENANCE Final Result * Pap Smear (06/26/2015) Pap smear negative, abstracted Historical Provider HEALTH MAINTENANCE Final Result from Last 3 Months or Most Recently Relevant to Health Maintenance Insurance [facility] [employer] Care Teams Medical Educator Relationship Specialty Start Date End Date Constantino Sanders MD [address] [place] [address] PCP - General Internal Medicine 10/05/24
--- OUTSIDE RECORDS SUMMARY | 2025-09-26 18:24 | XMS_ITS | Encounter Summary ---
Demographics Address [address] [place] [address] Home Phone Mobile Phone Email Address Preferred Language en Marital Status Worship Affiliation Unknown Race Other Race Ethnic Group or Author Organization [facility] Address [address] [place] [address] Support Name Relationship Address Phone Ale Uribe Significant other [address] [place] [address] Care Team Providers Care Pearl Hand Name Role Phone Constantino Sanders MD Primary Care Provider [phone] Encounter Details Date Type Department Care Team ([facility] Contact Info) Description 09/05/2025 Results Follow-Up Internal Medicine - [place] [address] [facility] [address] [place] [address] Christina Terrazas NP [address] [place] [address] Social History Tobacco Use Types Packs/Day Years [...] AM EDT Office Visit Internal Medicine - [place] 175 [facility] [address] [place] [address] Christina Terrazas NP 175 [facility] [address] [place] [address] documented as of this encounter Visit Diagnoses Diagnosis Vitamin D deficiency- Primary documented in this encounter Care Teams Pearl Hand Relationship Specialty Start Date End Date Constantino Sanders MD 175 [facility] [address] [place] [address] PCP - General Internal Medicine 10/05/24 documented as of this encounter
== END 2025-09-26 15:33 | disposition home or self-care (01) ==
LOC: HO.HMGAL 15:32
PROVIDERS: PCP Internal Medicine; Visit Provider Registered Nurse Emergency
DX: J30.89 Other allergic rhinitis (principal)
CPT/HCPCS: 95117; 95165

== ENCOUNTER 2025-10-03 15:51 | Outpatient (AMB) | payer OTHER, SELFPAY ==
--- OUTSIDE RECORDS SUMMARY | 2025-10-03 18:50 | XMS_ITS | Encounter Summary ---
Demographics Address [address] [place] [address] Home Phone Mobile Phone Email Address Preferred Language en Marital Status Mosque Affiliation Unknown Race Other Race Ethnic Group or Author Organization [facility] Address [address] [place] [address] Support Name Relationship Address Phone Ale Uribe Significant other [address] [place] [address] Care Team Providers Care Arts Education Teacher Name Role Phone Constantino Sanders MD Primary Care Provider [phone] Encounter Details Date Type Department Care Team ([facility] Contact Info) Description 09/05/2025 Results Follow-Up Internal Medicine - [place] [address] [place] [address] Christina Terrazas NP [address] [place] [address] Social History Tobacco Use Types Packs/Day Years [...] Care Team (Late st Contact Info) Description 10/30/2025 9:30 AM EST Office Visit Internal Medicine [facility] [address] [place] [phone] Christina Terrazas NP [address] [address] 09/05/2026 9:00 AM EDT Office Visit Internal Medicine - [place] [address] [address] Christina Terrazas NP [address] [address] documented as of this encounter Visit Diagnoses Diagnosis Vitamin D deficiency- Primary documented in this encounter Care Teams Arts Education Teacher Relationship Specialty Start Date End Date Constantino Sanders MD [address] [address] PCP - General Internal Medicine 10/05/24 documented as of this encounter
--- OUTSIDE RECORDS SUMMARY | 2025-10-03 18:50 | XMS_ITS | Clinical Summary ---
Demographics Address [address] [place] [address] Home Phone Mobile Phone Email Address Preferred Language en Marital Status Druze Affiliation Unknown Race Other Race Ethnic Group or Author Organization [facility] [place] [facility] Address [address] [place] [address] Support Name Relationship Address Phone Ale Manley Significant other [address] [place] [address] Care Team Providers Care Nutrition Manager Name Role Phone Constantino Sanders MD Primary Care Provider [phone] Allergies Active Allergy Reactions Criticality Noted Date [...] Depression 10/05/2024 Seropositive rheumatoid arth ritis ([facility] V24, [facility] V28) 10/05/2024 COVID-19 10/05/2024 Encounters Date Type Department Care Team Description 09/05/2025 Results Follow-Up Internal Medicine [facility] [address] [address] Christina Terrazas NP 09/04/2025 10:00 AM EDT Office Visit Internal Medicine [address] [address] Christina Terrazas NP Routine adult health maintenance (Primary Dx); Screening for ischemic heart disease; Screening for diabetes mellitus; Vitamin B12 deficiency; Vitamin D deficiency; Seropositive rheumatoid arthritis ([facility] V24, [facility] V28); Nodulocystic acne 09/04/2025 Telephone Internal Medicine [facility] [address] [address] Constantino Sanders MD 07/05/2025 2:30 PM EDT Office Visit Internal Medicine [address] [address] Constantino Sanders MD Nodulocystic acne (Primary Dx); Folliculitis from Last 3 Months Immunizations Immunization Administration Dates Next Due DTP 06/05/1998, 5,1994,07/21 HPV, Quadrivalent 06/06/2008,06/29/2007,01/06/20 07 Hepatitis B (Aexwngg-V-Ypfpf , Recombivax HB-Adult) 19yo and older 05/27/1995,1994,1994 [...] Panic attack 07/19/2013 DX:Panic attack; COMMENT: Seen [facility] 4-13 panic attack anxiety (c/o sob chest [...] 9:30 AM EST Office Visit Internal Medicine - [place] [address] [place] [phone] Christina Terrazas NP [address] [facility] [place] [address] 09/05/2026 9:00 AM EDT Office Visit Internal Medicine - [place] [address] [place] [address] Christina Terrazas NP 175 [facility] [address] [place] [address] Health Maintenance Due Date Last Done Comments [...] LAB CHEMISTRY METHOD 09/04/2025 6:06 PM EDT [facility] Blood Venous blood specimen / Unknown Venipuncture / Unknown 09/04/2025 10:43 AM EDT 09/04/2025 10:43 AM EDT us Christina Garciachapin PROJECT DRILLING ENGINEER LAB BLOOD ORDERABLES Final Resul t Performing Organization Address City/[facility]/ZIP Co de Phone Number [facility] [address] [place] [address], [place] [phone] * (ABNORMAL) Lipid panel with reflex to direct LDL (09/04/2025 10:43 AM EDT) Cholesterol 195 0 - 200 mg/dL LAB CHEMISTRY METHOD 09/04/2025 6:04 PM EDT [facility] Triglycerides 107 0 - 150 mg/dL LAB CHEMISTRY METHOD 09/04/2025 6:04 PM EDT [facility] HDL 53 >=40 mg/dL LAB CHEMISTRY METHOD 09/04/2025 6:04 PM EDT [facility] LDL Calculated 121(H) 0 - 100 mg/dL LAB CHEMISTRY METHOD 09/04/2025 6:04 PM EDT [facility] Comment:Estimated LDL Calcul ated using equation: Total cholesterol - HDL cholesterol - (Triglycerides/5) VLDL Cholesterol Maverick 21.4 mg/dL LAB CHEMISTRY METHOD 09/04/2025 6:04 PM EDT [facility] Non HDL Chol. (LDL+VLDL) 142 <145 mg/dL LAB CHEMISTRY METHOD 09/04/2025 6:04 PM EDT [facility] Chol/HDL Ratio 3.7 0.0 - 4.4 LAB CHEMISTRY METHOD 09/04/2025 6:04 PM T [facility] Blood Venous blood specimen / Unknown Venipuncture / Unknown 09/04/2025 10:43 AM EDT 09/04/2025 10:43 AM EDT us Christina Terrazas PROJECT DRILLING ENGINEER LAB BLOOD ORDERABLES Final Resul t [facility] [address] [place] [address], [place] [phone] * (ABNORMAL) Vitamin D 25 hydroxy (09/04/2025 10:43 AM EDT) [facility] Vit D, 25-Hydroxy 28.9(L) 30.0 - 80.0 ng/mL LAB CHEMISTRY METHOD 09/04/2025 6:06 PM EDT [facility] Blood Venous blood specimen / Unknown Venipuncture / Unknown 09/04/2025 10:43 AM EDT 09/04/2025 10:43 AM EDT us Christina Terrazas NP LAB BLOOD ORDERABLES Final Resul t [facility] [address] [place] [address], [place] [phone] * (ABNORMAL) Complete blood count (09/04/2025 10:43 AM EDT) [facility] WBC 6.3 4.8 - 10.8 K/mcL LAB HEMETOLOGY METHOD 09/04/2025 2:14 PM EDT [facility] RBC 5.10(H) 3.80 - 4.80 M/mcL LAB HEMETOLOGY METHOD 09/04/2025 2:14 PM EDT [facility] Hemoglobin 13.7 11.5 - 16.0 g/dL LAB HEMETOLOGY METHOD 09/04/2025 2:14 PM EDT [facility] Hematocrit 42.2 35.0 - 47.0 % LAB HEMETOLOGY METHOD 09/04/2025 2:14 PM EDT [facility] MCV 83.6 79.0 - 98.0 FL LAB HEMETOLOGY METHOD 09/04/2025 2:14 PM EDT [facility] MCH 27.1 27.0 - 32.0 pcg LAB HEMETOLOGY METHOD 09/04/2025 2:14 PM EDT [facility] MCHC 32.5 32.0 - 37.0 g/dL LAB HEMETOLOGY METHOD 09/04/2025 2:14 PM EDT [facility] RDW 12.5 11.0 - 15.0 % LAB HEMETOLOGY METHOD 09/04/2025 2:14 PM EDT [facility] Platelets 313 130 - 400 K/mcL LAB HEMETOLOGY METHOD 09/04/2025 2:14 PM EDT [facility] MPV 9.9 7.0 - 11.0 FL LAB HEMETOLOGY METHOD 09/04/2025 2:14 PM EDT [facility] NRBC 0.0 <1.0 % LAB HEMETOLOGY METHOD 09/04/2025 2:14 PM EDT [facility] NRBC Absolute 0.00 <0.10 K/mcL LAB HEMETOLOGY METHOD 09/04/2025 2:14 PM EDT [facility] Blood Venous blood specimen / Unknown Venipuncture / Unknown 09/04/2025 10:43 AM EDT 09/04/2025 10:43 AM EDT us Christina Terrazas NP LAB BLOOD ORDERABLES Final Resul t [facility] [address] [place] [address], * Magnesium (09/04/2025 10:43 AM EDT) Magnesium 2.0 1.9 - 2.6 mg/dL LAB CHEMISTRY METHOD 09/04/2025 5:39 PM EDT [facility] Blood Venous blood specimen / Unknown Venipuncture / Unknown 09/04/2025 10:43 AM EDT 09/04/2025 10:43 AM EDT us Christina Terrazas PROJECT DRILLING ENGINEER LAB BLOOD ORDERABLES Final Resul t Performing Organization Address [place]/[facility] Co de Phone Number [facility] [address] [place] [address], [place] [phone] * Hemoglobin A1c (09/04/2025 10:43 AM EDT) [facility] Hemoglobin A1C 5.4 <6.5 % LAB CHEMISTRY METHOD 09/04/2025 9:57 PM EDT [facility] Mean Bld Glu Estim. 108 mg/dL LAB CHEMISTRY METHOD 09/04/2025 9:57 PM EDT [facility] Blood Venous blood specimen / Unknown Venipuncture / Unknown 09/04/2025 10:43 AM EDT 09/04/2025 10:43 AM EDT us Christina Terrazas PROJECT DRILLING ENGINEER LAB BLOOD ORDERABLES Final Resul t Performing Organization Address [place]/[facility] de Phone Number [facility] [address] [place] [address], [place] [phone] * Vitamin B12 (09/04/2025 10:43 AM EDT) [facility] Vitamin B-12 521 250 - 900 pcg/mL LAB CHEMISTRY METHOD 09/04/2025 6:04 PM EDT [facility] Blood Venous blood specimen / Unknown Venipuncture / Unknown 09/04/2025 10:43 AM EDT 09/04/2025 10:43 AM EDT us Christina Terrazas PROJECT DRILLING ENGINEER LAB BLOOD ORDERABLES Final Resul t Performing Organization Address [place]/[facility]/ZIP Co de Phone Number [facility] [address] [place] [address], [place] [phone] * (ABNORMAL) Comprehensive metabolic panel (09/04/2025 10:43 AM EDT) [facility] Sodium 139 133 - 145 mmol/L LAB CHEMISTRY METHOD 09/04/2025 6:04 PM [facility] Potassium 4.4 3.5 - 5.5 mmol/L LAB CHEMISTRY METHOD 09/04/2025 6:04 PM [facility] Chloride 106 96 - 110 mmol/L LAB CHEMISTRY METHOD 09/04/2025 6:04 PM [facility] CO2 28 21 - 32 mmol/L LAB CHEMISTRY METHOD 09/04/2025 6:04 PM [facility] Anion Gap 5 3 - 11 LAB CHEMISTRY METHOD 09/04/2025 6:04 PM [facility] Glucose 111(H) 70 - 100 mg/dL LAB CHEMISTRY METHOD 09/04/2025 6:04 PM [facility] BUN 14 5 - 25 mg/dL LAB CHEMISTRY METHOD 09/04/2025 6:04 PM [facility] Creatinine 0.65 0.50 - 1.10 mg/dL LAB CHEMISTRY METHOD 09/04/2025 6:04 PM [facility] eGFR 121 >=60 mL/min/1. 73m2 LAB CHEMISTRY METHOD 09/04/2025 6:04 PM [facility] Comment:Calculation based on the Chronic Kidney Disease Epidemiology Collaboration (CKD-EPI) equation refit without adjustment for race. BUN/Creatinine Ratio 21.5 LAB CHEMISTRY METHOD 09/04/2025 6:04 PM [facility] Calcium 9.4 8.5 - 10.5 mg/dL LAB CHEMISTRY METHOD 09/04/2025 6:04 PM [facility] AST (SGOT) 20 10 - 42 unit/L LAB CHEMISTRY METHOD 09/04/2025 6:04 PM [facility] ALT (SGPT) 29 10 - 60 unit/L LAB CHEMISTRY METHOD 09/04/2025 6:04 PM [facility] Alkaline Phosphatase 82 42 - 121 unit/L LAB CHEMISTRY METHOD 09/04/2025 6:04 PM EDT [facility] Total Protein 7.0 6.0 - 8.0 g/dL LAB CHEMISTRY METHOD 09/04/2025 6:04 PM EDT [facility] Albumin 3.8 3.2 - 5.0 g/dL LAB CHEMISTRY METHOD 09/04/2025 6:04 PM EDT [facility] Total Bilirubin 0.3 0.0 - 1.4 mg/dL LAB CHEMISTRY METHOD 09/04/2025 6:04 PM EDT [facility] Blood Venous blood specimen / Unknown Venipuncture / Unknown 09/04/2025 10:43 AM EDT 09/04/2025 10:43 AM EDT Christina Terrazas NP LAB BLOOD ORDERABLES Final Resul t [facility] [address] [place] [address], * Hepatitis C Screening (10/05/2019) Hepatitis C Screening abstracted Historical Provider HEALTH MAINTENANCE Final Result * Pap Smear (06/26/2015) Pap smear negative, abstracted Historical Provider HEALTH MAINTENANCE Final Result from Last 3 Months or Most Recently Relevant to Health Maintenance Insurance [facility] [place] [address] Care Teams Nutrition Manager Relationship Specialty Start Date End Date Constantino Sanders MD 175 [facility] [address] [place] [address] PCP - General Internal Medicine 10/05/24
== END 2025-10-03 15:52 | disposition home or self-care (01) ==
LOC: HO.HMGAL 15:51
PROVIDERS: PCP Internal Medicine; Visit Provider Registered Nurse Emergency
DX: J30.89 Other allergic rhinitis (principal)
CPT/HCPCS: 95117; 95165

== ENCOUNTER 2025-10-10 15:30 | Outpatient (AMB) | payer OTHER, SELFPAY | END 2025-10-10 15:31 | disposition home or self-care (01) | LOC: HO.HMGAL 15:30 | PROVIDERS: PCP Internal Medicine; Visit Provider Registered Nurse Emergency | DX: J30.89 Other allergic rhinitis (principal) | CPT/HCPCS: 95117; 95165 ==

== ENCOUNTER 2025-10-24 15:02 | Outpatient (AMB) | payer OTHER, SELFPAY ==
--- OUTSIDE RECORDS SUMMARY | 2025-10-24 18:03 | XMS_ITS | Encounter Summary ---
Demographics Address [address] [place] [address] Home Phone Mobile Phone Email Address Preferred Language en Marital Status Mandaen Affiliation Unknown Race Other Race Ethnic Group or Author Organization [facility] Address [address] [place] [address] Support Name Relationship Address Phone Ale Uribe Significant other [address] [place] [address] Care Team Providers Care Integration Software Developer Name Role Phone Constantino Sanders MD Primary Care Provider [phone] Encounter Details Date Type Department Care Team ([facility] Contact Info) Description 09/05/2025 Results Follow-Up Internal Medicine - [place] [address] [place] [address] Christina Terrazas NP [address] [place] [address] Social History Tobacco Use Types Packs/Day Years [...] 9:30 AM EST Office Visit Internal Medicine [facility] [address] [place] [phone] Christina Terrazas NP [address] [address] 09/05/2026 9:00 AM EDT Office Visit Internal Medicine - [place] [address] [address] Christina Terrazas NP [address] [address] documented as of this encounter Visit Diagnoses Diagnosis Vitamin D deficiency- Primary documented in this encounter Care Teams Integration Software Developer Relationship Specialty Start Date End Date Constantino Sanders MD [address] [address] PCP - General Internal Medicine 10/05/24 documented as of this encounter
--- OUTSIDE RECORDS SUMMARY | 2025-10-24 18:04 | XMS_ITS | Clinical Summary ---
Demographics Address [address] [place] [address] Home Phone Mobile Phone Email Address Preferred Language en Marital Status Latter-Day Affiliation Unknown Race Other Race Ethnic Group or Author Organization Patient Business Ser [facility] Address [address] [place] [address] Support Name Relationship Address Phone Ale Manley Significant other [address] [place] [address] Care Team Providers Care Power Engineer Name Role Phone Constantino Sanders MD Primary Care Provider [phone] Allergies Active Allergy Reactions Criticality Noted Date [...] time each day. 90 tablet 3 5 09/05/20 26 Active Active Problems Problem Noted Date Diagnosed [...] pain/palpitations Depression 10/05/2024 Seropositive rheumatoid arth ritis ([facility] V24, [facility] V28) 10/05/2024 COVID-19 10/05/2024 Encounters Date Type Department Care Team Description 09/05/2025 Results Follow-Up Internal Medicine [address] [phone] Christina Terraazs NP 09/04/2025 10:00 AM EDT Office Visit Internal Medicine - [address] [place] [address] Christina Terrazas NP Routine adult health maintenance (Primary Dx); Screening for ischemic heart disease; Screening for diabetes mellitus; Vitamin B12 deficiency; Vitamin D deficiency; Seropositive rheumatoid arthritis ([facility] V24, [facility] V28); Nodulocystic acne 09/04/2025 Telephone Internal Medicine [address] [phone] Constantino Sanders MD from Last 3 Months Immunizations Immunization Administration Dates Next Due DTP 06/05/1998, 5,1994,07/21 HPV, Quadrivalent 06/06/2008,06/29/2007,01/06/20 07 Hepatitis B (Bfyxyia-M-Ypsjl , Recombivax HB-Adult) 19yo and older 05/27/1995,1994,1994 [...] Panic attack 07/19/2013 DX:Panic attack; COMMENT: Seen [facility] 4-13 panic attack anxiety (c/o sob chest [...] AM EST Office Visit Internal Medicine - [place] [address] [facility] [address] [place] [phone] Christina Terrazas NP [address] [facility] [address] [place] [address] 09/05/2026 9:00 AM EDT Office Visit Internal Medicine - [place] [address] [facility] [address] [place] [phone] Christina Terrazas NP [address] [facility] [address] [place] [address] Health Maintenance Due Date Last Done Comments Pneumococcal Vaccine: Pediatrics (0 to 5 Years) and At-Risk Patients (6 to 49 Years) (1 of 2 - PCV) 2013 Cervical Cancer Screening: Pap Smear 06/26/2018 06/26/2015 HIV Screening 07/14/2021 Social Influencers of Health Screening 07/14/2021 Depression Screening 11/22/2024 DTaP,Tdap,and Td Vaccines (8 - Td or Tdap) 03/18/2025 03/18/2015, 01/06/2007, 06/05/1998, Additional history exists COVID-19 Vaccine ( - 2024- season) 2025 12/24/2021, 11/26/2021 Influenza Vaccine (#1) [...] Completed 06/05/1998, 09/07/1995 HPV Vaccines Completed 06/06/2008, 08/06/2007, 06/29/2007, Additional history exists Meningococcal ACWY Vaccine [...] LAB CHEMISTRY METHOD 09/04/2025 6:06 PM EDT [facility] Blood Venous blood specimen / Unknown Venipuncture / Unknown 09/04/2025 10:43 AM EDT 09/04/2025 10:43 AM EDT us Christina Terrazas [facility] LAB BLOOD ORDERABLES Final Resul t [facility] [address] [place] [address], [place] [phone] * (ABNORMAL) Lipid panel with reflex to direct LDL (09/04/2025 10:43 AM EDT) Cholesterol 195 0 - 200 mg/dL LAB CHEMISTRY METHOD 09/04/2025 6:04 PM EDT [facility] Triglycerides 107 0 - 150 mg/dL LAB CHEMISTRY METHOD 09/04/2025 6:04 PM EDT [facility] HDL 53 >=40 mg/dL LAB CHEMISTRY METHOD 09/04/2025 6:04 PM EDT [facility] LDL Calculated 121(H) 0 - 100 mg/dL LAB CHEMISTRY METHOD 09/04/2025 6:04 PM EDT [facility] Comment:Estimated LDL Calcul ated using equation: Total cholesterol - HDL cholesterol - (Triglycerides/5) VLDL Cholesterol Maverick 21.4 mg/dL LAB CHEMISTRY METHOD 09/04/2025 6:04 PM EDT [facility] Non HDL Chol. (LDL+VLDL) 142 <145 mg/dL LAB CHEMISTRY METHOD 09/04/2025 6:04 PM EDT [facility] Chol/HDL Ratio 3.7 0.0 - 4.4 LAB CHEMISTRY METHOD 09/04/2025 6:04 PM EDT [facility] Blood Venous blood specimen / Unknown Venipuncture / Unknown 09/04/2025 10:43 AM EDT 09/04/2025 10:43 AM EDT us Christina Terrazas [facility] LAB BLOOD ORDERABLES Final Resul t [facility] [address] [place] [address], [place] [phone] * (ABNORMAL) Vitamin D 25 hydroxy (09/04/2025 10:43 AM EDT) Pathologist [facility] Vit D, 25-Hydroxy 28.9(L) 30.0 - 80.0 ng/mL LAB CHEMISTRY METHOD 09/04/2025 6:06 PM EDT [facility] Blood Venous blood specimen / Unknown Venipuncture / Unknown 09/04/2025 10:43 AM EDT 09/04/2025 10:43 AM EDT Christina Terrazas NP LAB BLOOD ORDERABLES Final Resul t [facility] [address] [place] [address], * (ABNORMAL) Complete blood count (09/04/2025 10:43 AM EDT) [facility] WBC 6.3 4.8 - 10.8 K/mcL LAB HEMETOLOGY METHOD 09/04/2025 2:14 PM EDT [facility] RBC 5.10(H) 3.80 - 4.80 M/mcL LAB HEMETOLOGY METHOD 09/04/2025 2:14 PM EDT [facility] Hemoglobin 13.7 11.5 - 16.0 g/dL LAB HEMETOLOGY METHOD 09/04/2025 2:14 PM EDT [facility] Hematocrit 42.2 35.0 - 47.0 % LAB HEMETOLOGY METHOD 09/04/2025 2:14 PM EDT [facility] MCV 83.6 79.0 - 98.0 FL LAB HEMETOLOGY METHOD 09/04/2025 2:14 PM EDT [facility] MCH 27.1 27.0 - 32.0 pcg LAB HEMETOLOGY METHOD 09/04/2025 2:14 PM EDT [facility] MCHC 32.5 32.0 - 37.0 g/dL LAB HEMETOLOGY METHOD 09/04/2025 2:14 PM EDT [facility] RDW 12.5 11.0 - 15.0 % LAB HEMETOLOGY METHOD 09/04/2025 2:14 PM EDT [facility] Platelets 313 130 - 400 K/mcL LAB HEMETOLOGY METHOD 09/04/2025 2:14 PM EDT [facility] MPV 9.9 7.0 - 11.0 FL LAB HEMETOLOGY METHOD 09/04/2025 2:14 PM EDT [facility] NRBC 0.0 <1.0 % LAB HEMETOLOGY METHOD 09/04/2025 2:14 PM EDT [facility] NRBC Absolute 0.00 <0.10 K/mcL LAB HEMETOLOGY METHOD 09/04/2025 2:14 PM EDT [facility] Blood Venous blood specimen / Unknown Venipuncture / Unknown 09/04/2025 10:43 AM EDT 09/04/2025 10:43 AM EDT us Christina Nini [facility] LAB BLOOD ORDERABLES Final Resul t [facility] [address] [place] [address], * Magnesium (09/04/2025 10:43 AM EDT) Magnesium 2.0 1.9 - 2.6 mg/dL LAB CHEMISTRY METHOD 09/04/2025 5:39 PM EDT [facility] Blood Venous blood specimen / Unknown Venipuncture / Unknown 09/04/2025 10:43 AM EDT 09/04/2025 10:43 AM EDT us Christina Terrazas [facility] [facility] LAB BLOOD ORDERABLES Final Resul t Performing Organization Address City/[facility]/ZIP Co de Phone Number [facility] [address] [place] [address], [place] [phone] * Hemoglobin A1c (09/04/2025 10:43 AM EDT) [facility] Hemoglobin A1C 5.4 <6.5 % LAB CHEMISTRY METHOD 09/04/2025 9:57 PM EDT [facility] Mean Bld Glu Estim. 108 mg/dL LAB CHEMISTRY METHOD 09/04/2025 9:57 PM EDT [facility] Blood Venous blood specimen / Unknown Venipuncture / Unknown 09/04/2025 10:43 AM EDT 09/04/2025 10:43 AM EDT us Christina Terrazas [employer] LAB BLOOD ORDERABLES Final Resul t Performing Organization Address [facility]/[place] Co de Phone Number [facility] [address] [place] [address], [place] [phone] * Vitamin B12 (09/04/2025 10:43 AM EDT) [facility] Vitamin B-12 521 250 - 900 pcg/mL LAB CHEMISTRY METHOD 09/04/2025 6:04 PM EDT [facility] Blood Venous blood specimen / Unknown Venipuncture / Unknown 09/04/2025 10:43 AM EDT 09/04/2025 10:43 AM EDT us Christina Terrazas [employer] LAB BLOOD ORDERABLES Final Resul t Performing Organization Address City/[facility]/ZIP Co de Phone Number [facility] [address] [place] [address], [place] [phone] * (ABNORMAL) Comprehensive metabolic panel (09/04/2025 10:43 AM EDT) [facility] Sodium 139 133 - 145 mmol/L LAB CHEMISTRY METHOD 09/04/2025 6:04 PM [facility] Potassium 4.4 3.5 - 5.5 mmol/L LAB CHEMISTRY METHOD 09/04/2025 6:04 PM [facility] Chloride 106 96 - 110 mmol/L LAB CHEMISTRY METHOD 09/04/2025 6:04 PM [facility] CO2 28 21 - 32 mmol/L LAB CHEMISTRY METHOD 09/04/2025 6:04 PM [facility] Anion Gap 5 3 - 11 LAB CHEMISTRY METHOD 09/04/2025 6:04 PM [facility] Glucose 111(H) 70 - 100 mg/dL LAB CHEMISTRY METHOD 09/04/2025 6:04 PM [facility] BUN 14 5 - 25 mg/dL LAB CHEMISTRY METHOD 09/04/2025 6:04 PM [facility] Creatinine 0.65 0.50 - 1.10 mg/dL LAB CHEMISTRY METHOD 09/04/2025 6:04 PM [facility] eGFR 121 >=60 mL/min/1. 73m2 LAB CHEMISTRY METHOD 09/04/2025 6:04 PM [facility] Comment:Calculation based on the Chronic Kidney Disease Epidemiology Collaboration (CKD-EPI) equation refit without adjustment for race. BUN/Creatinine Ratio 21.5 LAB CHEMISTRY METHOD 09/04/2025 6:04 PM [facility] Calcium 9.4 8.5 - 10.5 mg/dL LAB CHEMISTRY METHOD 09/04/2025 6:04 PM [facility] AST (SGOT) 20 10 - 42 unit/L LAB CHEMISTRY METHOD 09/04/2025 6:04 PM [facility] ALT (SGPT) 29 10 - 60 unit/L LAB CHEMISTRY METHOD 09/04/2025 6:04 PM [facility] Alkaline Phosphatase 82 42 - 121 unit/L LAB CHEMISTRY METHOD 09/04/2025 6:04 PM EDT [facility] Total Protein 7.0 6.0 - 8.0 g/dL LAB CHEMISTRY METHOD 09/04/2025 6:04 PM EDT [facility] Albumin 3.8 3.2 - 5.0 g/dL LAB CHEMISTRY METHOD 09/04/2025 6:04 PM EDT [facility] Total Bilirubin 0.3 0.0 - 1.4 mg/dL LAB CHEMISTRY METHOD 09/04/2025 6:04 PM EDT [facility] Blood Venous blood specimen / Unknown Venipuncture / Unknown 09/04/2025 10:43 AM EDT 09/04/2025 10:43 AM EDT Christina Terrazas NP LAB BLOOD ORDERABLES Final Resul t [facility] [address] [place] [address], * Hepatitis C Screening (10/05/2019) Hepatitis C Screening abstracted Historical Provider HEALTH MAINTENANCE Final Result * Pap Smear (06/26/2015) Pap smear negative, abstracted Historical Provider HEALTH MAINTENANCE Final Result from Last 3 Months or Most Recently Relevant to Health Maintenance Insurance [facility] [address] [place] [address] Care Teams Power Engineer Relationship Specialty Start Date End Date Constantino Sanders MD [address] [facility] [address] [place] [address] PCP - General Internal Medicine 10/05/24
== END 2025-10-24 15:03 | disposition home or self-care (01) ==
LOC: HO.HMGAL 15:02
PROVIDERS: PCP Internal Medicine; Visit Provider Registered Nurse Emergency
DX: J30.89 Other allergic rhinitis (principal)
CPT/HCPCS: 95117; 95165